=== PATIENT | female | born 1930 | race Caucasian/White ===

== ENCOUNTER 2017-03-16 08:00 | Day surgery (SDC) | payer OTHER ==
[~2017-03-16 08:00] MED LIST: ACEBUTCAFT PO; ALBU3IS INH; ALBU90OI INH; ALBU90OI6 INH; ALEN35; ALEN70 PO; ALLEGRA ALLERGY60 MG PO; AMITIZA PO; ANORO ELLIPTA1 EACH INH; ATEN100 PO; AZIT100SU PO; AZIT250 PO; Amitiza24 MCG; Amitiza24 MCG PO; BENAML20/5; BREO ELLIPTA 21 EACH IH; BUDE6HFA INH; BUME2 PO; Bactrim 400-801 EACH PO; CARV6.25 PO; CEPH250SUA PO; CEPH500 PO; CIPR500 PO; CLOP75; CYAN1000 PO; Carvedilol12.5 MG PO; Coreg12.5 MG PO; DIGO.125 PO; DIPH50 PO; DOCU100 PO; DONE10 PO; FEBU40TA PO; FURO20 PO; FURO40 PO; FURO80 PO; HYDACE25S PR; HYDACE5 PO; HYDACE7.5; HYDR1TAB94 PO; HYDR25SUP PR; Halcion0.25 MG PO; Hydrocodone-Ap1 EA23 PO; INDO25 PO; Ipratr-Albuterol3 ML INH; Isosorbide Mono30 MG PO; LACT10SY PO; LANOXIN125 MCG PO; LAVAP17G PO; LEVFLO500 PO; LEVO750; LORA.5 PO; LORA1 PO; Lasix80 MG PO; METANX; METANX PO; METO2.5 PO; METR500; METR500 PO; MOMENI; NYST100TC TOP; OXYACE7.5T PO; POTA10T PO; POTA8 PO; POTCHL20ER PO; PRED10 PO; PRED20 PO; PROACE100; PROACE100 PO; PROCTOSOL-HC30 GM PR; RANI150 PO; ROFL500T; ROFL500T PO; SPIR25 PO; SULTRIDS PO; Silvadene20 GM TOP; TIOT18 IH; TIOT18 INH; TRIHYD253A; VERA120 PO; VERA120ERB PO; Ventolin Soln3 ML INH; WARF3 PO; WARF4; WARF4 PO; WARF5; WARF5 PO; WARF7.5; Xanax0.5 MG PO; [UNRECOGNIZED DRUG - OTHER] PO
[2017-10-13] MEDS ORDERED: Nitrostat0.4 MG SL (11:26)
[2017-10-13] MEDS ORDERED: ENTRESTO 24 MG1 EACH PO (16:31)
[2017-10-13] MEDS ORDERED: B Complex #11 EACH PO (16:44)
[2017-10-13] MEDS ORDERED: B6 PO (16:47)
[2017-10-13] MEDS ORDERED: D3 PO (16:47)
[2017-10-13] MEDS ORDERED: Cefdinir300 MG PO (16:56)
[2017-10-16] MEDS ORDERED: Folic Acid-Vit1 EACH PO (13:35)
[2017-10-16] MEDS ORDERED: FURO40 PO (13:58)
== END 2017-03-16 10:51 | disposition home or self-care (01) ==
LOC: WOUND 08:00
PROC: 0HBKXZZ Excision of Right Lower Leg Skin, External Approach (ICD-10-PCS; principal; 2017-03-16)
DX: Z48.00 Encounter for change or removal of nonsurgical wound dressing (principal); I87.2 Venous insufficiency (chronic) (peripheral); I83.028 Varicose veins of left lower extremity with ulcer other part of lower leg; I83.018 Varicose veins of right lower extremity with ulcer other part of lower leg; J44.9 Chronic obstructive pulmonary disease, unspecified; Z99.81 Dependence on supplemental oxygen; I10 Essential (primary) hypertension
CPT/HCPCS: G0463

== ENCOUNTER 2017-03-20 10:02 | Day surgery (SDC) | payer OTHER ==
[2017-10-13] MEDS ORDERED: Nitrostat0.4 MG SL (11:26)
[2017-10-13] MEDS ORDERED: ENTRESTO 24 MG1 EACH PO (16:31)
[2017-10-13] MEDS ORDERED: B Complex #11 EACH PO (16:44)
[2017-10-13] MEDS ORDERED: B6 PO (16:47)
[2017-10-13] MEDS ORDERED: D3 PO (16:47)
[2017-10-13] MEDS ORDERED: Cefdinir300 MG PO (16:56)
[2017-10-16] MEDS ORDERED: Folic Acid-Vit1 EACH PO (13:35)
[2017-10-16] MEDS ORDERED: FURO40 PO (13:58)
== END 2017-03-20 10:37 | disposition home or self-care (01) ==
LOC: WOUND 10:02
PROC: 2W1RX6Z Compression of Left Lower Leg using Pressure Dressing (ICD-10-PCS; principal; 2017-03-20)
DX: Z48.00 Encounter for change or removal of nonsurgical wound dressing (principal); I87.2 Venous insufficiency (chronic) (peripheral); I83.028 Varicose veins of left lower extremity with ulcer other part of lower leg; I83.018 Varicose veins of right lower extremity with ulcer other part of lower leg; J44.9 Chronic obstructive pulmonary disease, unspecified; I10 Essential (primary) hypertension; Z99.81 Dependence on supplemental oxygen

== ENCOUNTER 2017-03-23 12:00 | Day surgery (SDC) | payer OTHER ==
[2017-10-13] MEDS ORDERED: Nitrostat0.4 MG SL (11:26)
[2017-10-13] MEDS ORDERED: ENTRESTO 24 MG1 EACH PO (16:31)
[2017-10-13] MEDS ORDERED: B Complex #11 EACH PO (16:44)
[2017-10-13] MEDS ORDERED: B6 PO (16:47)
[2017-10-13] MEDS ORDERED: D3 PO (16:47)
[2017-10-13] MEDS ORDERED: Cefdinir300 MG PO (16:56)
[2017-10-16] MEDS ORDERED: Folic Acid-Vit1 EACH PO (13:35)
[2017-10-16] MEDS ORDERED: FURO40 PO (13:58)
== END 2017-03-23 13:22 | disposition home or self-care (01) ==
LOC: WOUND 12:00
DX: Z48.00 Encounter for change or removal of nonsurgical wound dressing (principal); I87.2 Venous insufficiency (chronic) (peripheral); I83.028 Varicose veins of left lower extremity with ulcer other part of lower leg; I83.018 Varicose veins of right lower extremity with ulcer other part of lower leg; J44.9 Chronic obstructive pulmonary disease, unspecified; Z99.81 Dependence on supplemental oxygen; I11.0 Hypertensive heart disease with heart failure; I50.9 Heart failure, unspecified; I48.91 Unspecified atrial fibrillation

== ENCOUNTER 2017-03-24 16:46 | Inpatient (IN) | payer OTHER ==
[~2017-03-24] VITALS: Ht 157.5 cm; Wt 73.1 kg
[2017-03-24 17:16] LABS: BASOPHILS ABSOLUTE AUTO 0.02 K/mm3 (0.00-0.23); BASOPHILS PERCENT AUTO 0 % (0-2); EOSINOPHILS PERCENT AUTO 4 % (0-6); Hematocrit 36.4 % (33.0-51.0); Hemoglobin 10.8 g/dL (11.5-16.0); IMMATURE GRAN ABSOLUTE AUTO 0.01 K/mm3 (0.00-0.10); IMMATURE GRAN PERCENT AUTO 0 % (0-1); LYMPHOCYTES ABSOLUTE AUTO 0.88 K/mm3 (0.84-5.20); LYMPHOCYTES PERCENT AUTO 12 % (21-46); MONOCYTES ABSOLUTE AUTO 0.48 K/mm3 (0.16-1.47); MONOCYTES PERCENT AUTO 6 % (4-13); Mean Corpuscular HGB Conc 29.7 g/dL (31.5-36.5); Mean Corpuscular Volume 88 fL (80-100); Mean Platelet Volume 10.5 fL (9.1-12.4); NEUTROPHILS ABSOLUTE AUTO 5.99 K/mm3 (1.96-9.15); NEUTROPHILS PERCENT AUTO 78 % (41-73); Platelet Count 258 K/mm3 (150-400); RDW Coefficient Variation 18.4 % (11.7-14.2); RDW Standard Deviation 60.2 fL (35.1-46.3); Red Blood Cell Count 4.15 M/mm3 (3.80-5.20); White Blood Cell Count 7.68 K/mm3 (4.00-11.30)
[2017-03-24 17:17] LABS: Base Excess Venous 5.6 mmol/L; Bicarbonate Venous 27.9 mmol/L (24.0-30.0); PCO2 Venous 65.2 mmHg (38-42); PO2 Venous 59.6 mmHg (38-42)
[2017-03-24 17:28] LABS: International Normalized Ratio 1.44; Prothrombin Time Results 15.1 Sec (9.7-11.5)
[2017-03-24 17:39] LABS: Alanine Aminotransfer (ALT/SGP 19 U/L (12-78); Albumin, Blood 3.1 g/dL (3.4-5.0); Albumin/Globulin Ratio 0.7 (0.8-1.8); Alk Phos 115 U/L (50-136); Anion Gap 7 mmol/L (6-16); Aspartate Aminotrans (AST/SGOT 19 U/L (12-37); Bilirubin, Total 0.3 mg/dL (0.1-1.0); Blood Urea Nitrogen 33 mg/dL (8-24); Bun/Creatinine Ratio 29.2 (12.0-20.0); CO2, Blood 30 mmol/L (21-32); Calcium, Blood 9.1 mg/dL (8.5-10.1); Chloride, Blood 102 mmol/L (98-108); Creatinine, Blood 1.13 mg/dL (0.40-1.00); Globulin, Blood 4.7 g/dL (2.2-4.0); Glomerular Filtration Rate 49 (60-); Glucose, Blood 116 mg/dL (70-99); Potassium, Blood 5.2 mmol/L (3.5-5.5); Sodium, Blood 139 mmol/L (136-145); Total Protein, Blood 7.8 g/dL (6.4-8.2); Troponin I <0.015 ng/mL (0.000-0.040)
[2017-03-24 17:53] LABS: Source, Urine Clean Catch
[2017-03-24 17:57] LABS: Bilirubin, Urine Neg (Neg); Blood, Urine 1+ (Neg); Glucose Qualitative, Urine Neg (Neg); Ketones, Urine Neg (Neg); Leukocyte Esterase, Urine Neg (Neg); Nitrite, Urine Neg (Neg); Protein, Urine Neg (Neg); Specific Gravity, Urine 1.015 (1.003-1.022); Urobilinogen, Urine NORM (Normal)
[2017-03-24 18:00] LABS: Appearance, Urine Clear (Clear); Color, Urine Yellow (P-Yellow)
[2017-03-24 18:03] LABS: Bacteria Mod /hpf; Red Blood Cells, Urine 0-2 /hpf (0-2); Squamous Epithelial Cells Few /hpf (Few)
[2017-03-25 04:41] LABS: BASOPHILS ABSOLUTE AUTO 0.01 K/mm3 (0.00-0.23); BASOPHILS PERCENT AUTO 0 % (0-2); EOSINOPHILS ABSOLUTE AUTO 0.01 K/mm3 (0.00-0.68); EOSINOPHILS PERCENT AUTO 0 % (0-6); Hemoglobin 10.5 g/dL (11.5-16.0); IMMATURE GRAN ABSOLUTE AUTO 0.01 K/mm3 (0.00-0.10); IMMATURE GRAN PERCENT AUTO 0 % (0-1); LYMPHOCYTES ABSOLUTE AUTO 0.37 K/mm3 (0.84-5.20); LYMPHOCYTES PERCENT AUTO 4 % (21-46); MONOCYTES ABSOLUTE AUTO 0.14 K/mm3 (0.16-1.47); MONOCYTES PERCENT AUTO 2 % (4-13); Mean Corpuscular HGB 26.2 pg (26.0-34.0); Mean Corpuscular HGB Conc 29.2 g/dL (31.5-36.5); Mean Corpuscular Volume 90 fL (80-100); Mean Platelet Volume 11.3 fL (9.1-12.4); NEUTROPHILS ABSOLUTE AUTO 8.51 K/mm3 (1.96-9.15); NEUTROPHILS PERCENT AUTO 94 % (41-73); Platelet Count 242 K/mm3 (150-400); RDW Coefficient Variation 18.2 % (11.7-14.2); RDW Standard Deviation 60.4 fL (35.1-46.3); Red Blood Cell Count 4.01 M/mm3 (3.80-5.20); White Blood Cell Count 9.05 K/mm3 (4.00-11.30)
[2017-03-25 04:59] LABS: International Normalized Ratio 1.43
[2017-03-25 05:16] LABS: Albumin, Blood 2.9 g/dL (3.4-5.0); Albumin/Globulin Ratio 0.6 (0.8-1.8); Bilirubin, Total 0.6 mg/dL (0.1-1.0); Bun/Creatinine Ratio 29.3 (12.0-20.0); Calcium, Blood 8.8 mg/dL (8.5-10.1); Creatinine, Blood 0.99 mg/dL (0.40-1.00); Globulin, Blood 4.8 g/dL (2.2-4.0); Potassium, Blood 4.9 mmol/L (3.5-5.5); Total Protein, Blood 7.7 g/dL (6.4-8.2)
[2017-03-25 19:19] LABS: International Normalized Ratio 1.79; Prothrombin Time Results 18.9 Sec (9.7-11.5)
[2017-03-26 04:15] LABS: International Normalized Ratio 2.01; Prothrombin Time Results 21.4 Sec (9.7-11.5)
[2017-03-27 04:15] LABS: BASOPHILS PERCENT AUTO 0 % (0-2); EOSINOPHILS PERCENT AUTO 0 % (0-6); Hematocrit 34.6 % (33.0-51.0); Hemoglobin 10.4 g/dL (11.5-16.0); IMMATURE GRAN ABSOLUTE AUTO 0.02 K/mm3 (0.00-0.10); IMMATURE GRAN PERCENT AUTO 0 % (0-1); LYMPHOCYTES ABSOLUTE AUTO 0.39 K/mm3 (0.84-5.20); LYMPHOCYTES PERCENT AUTO 3 % (21-46); MONOCYTES ABSOLUTE AUTO 0.51 K/mm3 (0.16-1.47); MONOCYTES PERCENT AUTO 4 % (4-13); Mean Corpuscular HGB 26.7 pg (26.0-34.0); Mean Corpuscular HGB Conc 30.1 g/dL (31.5-36.5); Mean Corpuscular Volume 89 fL (80-100); Mean Platelet Volume 11.3 fL (9.1-12.4); NEUTROPHILS ABSOLUTE AUTO 11.39 K/mm3 (1.96-9.15); NEUTROPHILS PERCENT AUTO 93 % (41-73); Platelet Count 223 K/mm3 (150-400); RDW Coefficient Variation 18.5 % (11.7-14.2); RDW Standard Deviation 59.6 fL (35.1-46.3); Red Blood Cell Count 3.89 M/mm3 (3.80-5.20); White Blood Cell Count 12.31 K/mm3 (4.00-11.30)
[2017-03-27 04:26] LABS: International Normalized Ratio 2.73; Prothrombin Time Results 29.3 Sec (9.7-11.5)
[2017-03-27 04:40] LABS: Bun/Creatinine Ratio 40.6 (12.0-20.0); Calcium, Blood 8.9 mg/dL (8.5-10.1); Creatinine, Blood 1.01 mg/dL (0.40-1.00); Potassium, Blood 4.4 mmol/L (3.5-5.5)
[2017-03-28 05:13] LABS: International Normalized Ratio 3.96
[2017-03-28 05:18] LABS: Bun/Creatinine Ratio 43.6 (12.0-20.0); Calcium, Blood 9.1 mg/dL (8.5-10.1); Creatinine, Blood 1.1 mg/dL (0.40-1.00); Potassium, Blood 4.2 mmol/L (3.5-5.5)
[2017-03-29 05:50] LABS: International Normalized Ratio 2.72; Prothrombin Time Results 29.2 Sec (9.7-11.5)
[2017-03-29 06:13] LABS: Bun/Creatinine Ratio 47.5 (12.0-20.0); Calcium, Blood 9.1 mg/dL (8.5-10.1); Creatinine, Blood 1.01 mg/dL (0.40-1.00); Potassium, Blood 4.4 mmol/L (3.5-5.5)
[2017-03-30 06:03] LABS: International Normalized Ratio 2.21; Prothrombin Time Results 23.6 Sec (9.7-11.5)
[2017-03-30 06:14] LABS: Albumin, Blood 2.5 g/dL (3.4-5.0); Anion Gap 7 mmol/L (6-16); Blood Urea Nitrogen 55 mg/dL (8-24); Bun/Creatinine Ratio 55.8 (12.0-20.0); CO2, Blood 34 mmol/L (21-32); Chloride, Blood 95 mmol/L (98-108); Creatinine, Blood 0.99 mg/dL (0.40-1.00); Glomerular Filtration Rate 57 (60-); Glucose, Blood 115 mg/dL (70-99); Phosphorus, Blood 3.2 mg/dL (2.5-4.9); Potassium, Blood 4.2 mmol/L (3.5-5.5); Sodium, Blood 136 mmol/L (136-145)
[2017-03-31 05:01] LABS: International Normalized Ratio 2.62; Prothrombin Time Results 28.1 Sec (9.7-11.5)
[2017-03-31] MEDS ORDERED: PRED20 PO (16:10)
[2017-03-31] MEDS ORDERED: LEVFLO500 PO (16:11)
[2017-03-31] MEDS ORDERED: POTCHL20ER PO (16:13)
[2017-10-13] MEDS ORDERED: Nitrostat0.4 MG SL (11:26)
[2017-10-13] MEDS ORDERED: ENTRESTO 24 MG1 EACH PO (16:31)
[2017-10-13] MEDS ORDERED: B Complex #11 EACH PO (16:44)
[2017-10-13] MEDS ORDERED: B6 PO (16:47)
[2017-10-13] MEDS ORDERED: D3 PO (16:47)
[2017-10-13] MEDS ORDERED: Cefdinir300 MG PO (16:56)
[2017-10-16] MEDS ORDERED: Folic Acid-Vit1 EACH PO (13:35)
[2017-10-16] MEDS ORDERED: FURO40 PO (13:58)
== END 2017-03-31 16:28 | disposition home or self-care (01) | DRG 190 ==
LOC: ER 16:46 → PCU 19:28 → SURS 03-27 11:33
PROVIDERS: Emergency Medicine; Family Medicine
PROC: 5A09357 Assistance with Respiratory Ventilation, Less than 24 Consecutive Hours, Continuous Positive Airway Pressure (ICD-10-PCS; principal; 2017-03-24)
DX: J44.1 Chronic obstructive pulmonary disease with (acute) exacerbation (principal); J96.02 Acute respiratory failure with hypercapnia; E87.2 Acidosis; I50.42 Chronic combined systolic (congestive) and diastolic (congestive) heart failure; I87.331 Chronic venous hypertension (idiopathic) with ulcer and inflammation of right lower extremity; L97.919 Non-pressure chronic ulcer of unspecified part of right lower leg with unspecified severity; I11.0 Hypertensive heart disease with heart failure; E11.9 Type 2 diabetes mellitus without complications; I25.10 Atherosclerotic heart disease of native coronary artery without angina pectoris; I48.2 Chronic atrial fibrillation; I73.9 Peripheral vascular disease, unspecified; I87.2 Venous insufficiency (chronic) (peripheral); I89.0 Lymphedema, not elsewhere classified; Z79.01 Long term (current) use of anticoagulants; Z85.528 Personal history of other malignant neoplasm of kidney; Z86.73 Personal history of transient ischemic attack (TIA), and cerebral infarction without residual deficits; Z99.2 Dependence on renal dialysis; Z87.891 Personal history of nicotine dependence
CPT/HCPCS: 36415; 51702; 71046; 80048; 80053; 80069; 81001; 82803; 82947; 83880; 84484; 85025; 85610; 87086; 93005; 93010; 94640; 94760; 94762; 96374; 96375; 99285; J0696; J1940; J1956; J2930; J7030

== ENCOUNTER 2017-04-06 12:30 | Day surgery (SDC) | payer OTHER ==
[2017-10-13] MEDS ORDERED: Nitrostat0.4 MG SL (11:26)
[2017-10-13] MEDS ORDERED: ENTRESTO 24 MG1 EACH PO (16:31)
[2017-10-13] MEDS ORDERED: B Complex #11 EACH PO (16:44)
[2017-10-13] MEDS ORDERED: D3 PO (16:47)
[2017-10-13] MEDS ORDERED: B6 PO (16:47)
[2017-10-13] MEDS ORDERED: Cefdinir300 MG PO (16:56)
[2017-10-16] MEDS ORDERED: Folic Acid-Vit1 EACH PO (13:35)
[2017-10-16] MEDS ORDERED: FURO40 PO (13:58)
== END 2017-04-06 13:15 | disposition home or self-care (01) ==
LOC: WOUND 12:30
PROC: 2W1RX6Z Compression of Left Lower Leg using Pressure Dressing (ICD-10-PCS; principal; 2017-04-06)
DX: Z48.00 Encounter for change or removal of nonsurgical wound dressing (principal); I87.2 Venous insufficiency (chronic) (peripheral); I83.028 Varicose veins of left lower extremity with ulcer other part of lower leg; I83.018 Varicose veins of right lower extremity with ulcer other part of lower leg; J44.9 Chronic obstructive pulmonary disease, unspecified; I10 Essential (primary) hypertension; Z99.81 Dependence on supplemental oxygen

== ENCOUNTER 2017-04-12 10:00 | Day surgery (SDC) | payer OTHER ==
[2017-10-13] MEDS ORDERED: Nitrostat0.4 MG SL (11:26)
[2017-10-13] MEDS ORDERED: ENTRESTO 24 MG1 EACH PO (16:31)
[2017-10-13] MEDS ORDERED: B Complex #11 EACH PO (16:44)
[2017-10-13] MEDS ORDERED: B6 PO (16:47)
[2017-10-13] MEDS ORDERED: D3 PO (16:47)
[2017-10-13] MEDS ORDERED: Cefdinir300 MG PO (16:56)
[2017-10-16] MEDS ORDERED: Folic Acid-Vit1 EACH PO (13:35)
[2017-10-16] MEDS ORDERED: FURO40 PO (13:58)
== END 2017-04-12 11:43 | disposition home or self-care (01) ==
LOC: WOUND 10:00
DX: Z48.00 Encounter for change or removal of nonsurgical wound dressing (principal); I87.2 Venous insufficiency (chronic) (peripheral); I83.028 Varicose veins of left lower extremity with ulcer other part of lower leg; I83.018 Varicose veins of right lower extremity with ulcer other part of lower leg; J44.9 Chronic obstructive pulmonary disease, unspecified; Z99.81 Dependence on supplemental oxygen; I11.0 Hypertensive heart disease with heart failure; I50.9 Heart failure, unspecified; I48.91 Unspecified atrial fibrillation
CPT/HCPCS: G0463

== ENCOUNTER 2017-04-20 00:46 | Day surgery (SDC) | payer OTHER ==
[2017-10-13] MEDS ORDERED: Nitrostat0.4 MG SL (11:26)
[2017-10-13] MEDS ORDERED: ENTRESTO 24 MG1 EACH PO (16:31)
[2017-10-13] MEDS ORDERED: B Complex #11 EACH PO (16:44)
[2017-10-13] MEDS ORDERED: B6 PO (16:47)
[2017-10-13] MEDS ORDERED: D3 PO (16:47)
[2017-10-13] MEDS ORDERED: Cefdinir300 MG PO (16:56)
[2017-10-16] MEDS ORDERED: Folic Acid-Vit1 EACH PO (13:35)
[2017-10-16] MEDS ORDERED: FURO40 PO (13:58)
== END 2017-04-20 23:19 | disposition home or self-care (01) ==
LOC: WOUND 00:46
DX: Z48.00 Encounter for change or removal of nonsurgical wound dressing (principal); I87.2 Venous insufficiency (chronic) (peripheral); I83.028 Varicose veins of left lower extremity with ulcer other part of lower leg; I83.018 Varicose veins of right lower extremity with ulcer other part of lower leg; J44.9 Chronic obstructive pulmonary disease, unspecified; Z99.81 Dependence on supplemental oxygen; L97.819 Non-pressure chronic ulcer of other part of right lower leg with unspecified severity; L97.829 Non-pressure chronic ulcer of other part of left lower leg with unspecified severity; I11.0 Hypertensive heart disease with heart failure; I50.9 Heart failure, unspecified; I48.91 Unspecified atrial fibrillation
CPT/HCPCS: 93970; G0463

== ENCOUNTER 2017-04-27 09:00 | Day surgery (SDC) | payer OTHER ==
[2017-10-13] MEDS ORDERED: Nitrostat0.4 MG SL (11:26)
[2017-10-13] MEDS ORDERED: ENTRESTO 24 MG1 EACH PO (16:31)
[2017-10-13] MEDS ORDERED: B Complex #11 EACH PO (16:44)
[2017-10-13] MEDS ORDERED: D3 PO (16:47)
[2017-10-13] MEDS ORDERED: B6 PO (16:47)
[2017-10-13] MEDS ORDERED: Cefdinir300 MG PO (16:56)
[2017-10-16] MEDS ORDERED: Folic Acid-Vit1 EACH PO (13:35)
[2017-10-16] MEDS ORDERED: FURO40 PO (13:58)
== END 2017-04-27 10:48 | disposition home or self-care (01) ==
LOC: WOUND 09:00
DX: Z48.00 Encounter for change or removal of nonsurgical wound dressing (principal); I87.2 Venous insufficiency (chronic) (peripheral); I83.028 Varicose veins of left lower extremity with ulcer other part of lower leg; I83.018 Varicose veins of right lower extremity with ulcer other part of lower leg; J44.9 Chronic obstructive pulmonary disease, unspecified; Z99.81 Dependence on supplemental oxygen; I10 Essential (primary) hypertension
CPT/HCPCS: G0463

== ENCOUNTER 2017-05-04 00:33 | Day surgery (SDC) | payer OTHER ==
[2017-10-13] MEDS ORDERED: Nitrostat0.4 MG SL (11:26)
[2017-10-13] MEDS ORDERED: ENTRESTO 24 MG1 EACH PO (16:31)
[2017-10-13] MEDS ORDERED: B Complex #11 EACH PO (16:44)
[2017-10-13] MEDS ORDERED: D3 PO (16:47)
[2017-10-13] MEDS ORDERED: B6 PO (16:47)
[2017-10-13] MEDS ORDERED: Cefdinir300 MG PO (16:56)
[2017-10-16] MEDS ORDERED: Folic Acid-Vit1 EACH PO (13:35)
[2017-10-16] MEDS ORDERED: FURO40 PO (13:58)
== END 2017-05-04 23:58 | disposition home or self-care (01) ==
LOC: WOUND 00:33
PROC: 2W1RX6Z Compression of Left Lower Leg using Pressure Dressing (ICD-10-PCS; principal; 2017-05-04)
PROC: 2W1QX6Z Compression of Right Lower Leg using Pressure Dressing (ICD-10-PCS; principal; 2017-05-04)
DX: Z48.00 Encounter for change or removal of nonsurgical wound dressing (principal); I87.2 Venous insufficiency (chronic) (peripheral); I83.028 Varicose veins of left lower extremity with ulcer other part of lower leg; I83.018 Varicose veins of right lower extremity with ulcer other part of lower leg; J44.9 Chronic obstructive pulmonary disease, unspecified; Z98.1 Arthrodesis status; I10 Essential (primary) hypertension; Z86.73 Personal history of transient ischemic attack (TIA), and cerebral infarction without residual deficits; I11.0 Hypertensive heart disease with heart failure; I50.9 Heart failure, unspecified
CPT/HCPCS: G0463

== ENCOUNTER 2017-05-07 00:03 | Day surgery (SDC) | payer OTHER ==
[2017-10-13] MEDS ORDERED: Nitrostat0.4 MG SL (11:26)
[2017-10-13] MEDS ORDERED: ENTRESTO 24 MG1 EACH PO (16:31)
[2017-10-13] MEDS ORDERED: B Complex #11 EACH PO (16:44)
[2017-10-13] MEDS ORDERED: B6 PO (16:47)
[2017-10-13] MEDS ORDERED: D3 PO (16:47)
[2017-10-13] MEDS ORDERED: Cefdinir300 MG PO (16:56)
[2017-10-16] MEDS ORDERED: Folic Acid-Vit1 EACH PO (13:35)
[2017-10-16] MEDS ORDERED: FURO40 PO (13:58)
== END 2017-05-07 11:15 | disposition home or self-care (01) ==
LOC: WOUND 00:03
DX: Z48.00 Encounter for change or removal of nonsurgical wound dressing (principal); I87.2 Venous insufficiency (chronic) (peripheral); I83.028 Varicose veins of left lower extremity with ulcer other part of lower leg; I83.018 Varicose veins of right lower extremity with ulcer other part of lower leg; J44.9 Chronic obstructive pulmonary disease, unspecified; Z99.81 Dependence on supplemental oxygen; I10 Essential (primary) hypertension
CPT/HCPCS: G0463

== ENCOUNTER 2017-05-11 00:45 | Day surgery (SDC) | payer OTHER ==
[2017-10-13] MEDS ORDERED: Nitrostat0.4 MG SL (11:26)
[2017-10-13] MEDS ORDERED: ENTRESTO 24 MG1 EACH PO (16:31)
[2017-10-13] MEDS ORDERED: B Complex #11 EACH PO (16:44)
[2017-10-13] MEDS ORDERED: D3 PO (16:47)
[2017-10-13] MEDS ORDERED: B6 PO (16:47)
[2017-10-13] MEDS ORDERED: Cefdinir300 MG PO (16:56)
[2017-10-16] MEDS ORDERED: Folic Acid-Vit1 EACH PO (13:35)
[2017-10-16] MEDS ORDERED: FURO40 PO (13:58)
== END 2017-05-11 23:19 | disposition home or self-care (01) ==
LOC: WOUND 00:45
DX: Z48.00 Encounter for change or removal of nonsurgical wound dressing (principal); I87.2 Venous insufficiency (chronic) (peripheral); I83.028 Varicose veins of left lower extremity with ulcer other part of lower leg; I83.018 Varicose veins of right lower extremity with ulcer other part of lower leg; J44.9 Chronic obstructive pulmonary disease, unspecified; Z99.81 Dependence on supplemental oxygen; I48.91 Unspecified atrial fibrillation; I11.0 Hypertensive heart disease with heart failure; I50.9 Heart failure, unspecified

== ENCOUNTER 2017-05-18 00:07 | Day surgery (SDC) | payer OTHER ==
[2017-10-13] MEDS ORDERED: Nitrostat0.4 MG SL (11:26)
[2017-10-13] MEDS ORDERED: ENTRESTO 24 MG1 EACH PO (16:31)
[2017-10-13] MEDS ORDERED: B Complex #11 EACH PO (16:44)
[2017-10-13] MEDS ORDERED: B6 PO (16:47)
[2017-10-13] MEDS ORDERED: D3 PO (16:47)
[2017-10-13] MEDS ORDERED: Cefdinir300 MG PO (16:56)
[2017-10-16] MEDS ORDERED: Folic Acid-Vit1 EACH PO (13:35)
[2017-10-16] MEDS ORDERED: FURO40 PO (13:58)
== END 2017-05-18 22:50 | disposition home or self-care (01) ==
LOC: WOUND 00:07
PROC: 2W1LX6Z Compression of Right Lower Extremity using Pressure Dressing (ICD-10-PCS; principal; 2017-05-18)
PROC: 2W1RX6Z Compression of Left Lower Leg using Pressure Dressing (ICD-10-PCS; principal; 2017-05-18)
DX: I83.028 Varicose veins of left lower extremity with ulcer other part of lower leg (principal); I83.018 Varicose veins of right lower extremity with ulcer other part of lower leg; J44.9 Chronic obstructive pulmonary disease, unspecified; I10 Essential (primary) hypertension; I87.2 Venous insufficiency (chronic) (peripheral); L97.919 Non-pressure chronic ulcer of unspecified part of right lower leg with unspecified severity
CPT/HCPCS: 87070; 87077; 87147; 87186; 87205; G0463

== ENCOUNTER 2017-05-23 09:19 | Day surgery (SDC) | payer OTHER ==
[2017-10-13] MEDS ORDERED: Nitrostat0.4 MG SL (11:26)
[2017-10-13] MEDS ORDERED: ENTRESTO 24 MG1 EACH PO (16:31)
[2017-10-13] MEDS ORDERED: B Complex #11 EACH PO (16:44)
[2017-10-13] MEDS ORDERED: D3 PO (16:47)
[2017-10-13] MEDS ORDERED: B6 PO (16:47)
[2017-10-13] MEDS ORDERED: Cefdinir300 MG PO (16:56)
[2017-10-16] MEDS ORDERED: Folic Acid-Vit1 EACH PO (13:35)
[2017-10-16] MEDS ORDERED: FURO40 PO (13:58)
== END 2017-05-23 22:45 | disposition home or self-care (01) ==
LOC: WOUND 09:19
DX: Z48.00 Encounter for change or removal of nonsurgical wound dressing (principal); I87.2 Venous insufficiency (chronic) (peripheral); I83.028 Varicose veins of left lower extremity with ulcer other part of lower leg; I83.018 Varicose veins of right lower extremity with ulcer other part of lower leg; J44.9 Chronic obstructive pulmonary disease, unspecified; Z99.81 Dependence on supplemental oxygen; I11.0 Hypertensive heart disease with heart failure; I50.9 Heart failure, unspecified
CPT/HCPCS: G0463

== ENCOUNTER 2017-05-25 00:45 | Day surgery (SDC) | payer OTHER ==
[2017-10-13] MEDS ORDERED: Nitrostat0.4 MG SL (11:26)
[2017-10-13] MEDS ORDERED: ENTRESTO 24 MG1 EACH PO (16:31)
[2017-10-13] MEDS ORDERED: B Complex #11 EACH PO (16:44)
[2017-10-13] MEDS ORDERED: D3 PO (16:47)
[2017-10-13] MEDS ORDERED: B6 PO (16:47)
[2017-10-13] MEDS ORDERED: Cefdinir300 MG PO (16:56)
[2017-10-16] MEDS ORDERED: Folic Acid-Vit1 EACH PO (13:35)
[2017-10-16] MEDS ORDERED: FURO40 PO (13:58)
== END 2017-05-25 22:58 | disposition home or self-care (01) ==
LOC: WOUND 00:45
PROC: 0HBLXZZ Excision of Left Lower Leg Skin, External Approach (ICD-10-PCS; principal; 2017-05-25)
DX: I87.2 Venous insufficiency (chronic) (peripheral) (principal); I83.028 Varicose veins of left lower extremity with ulcer other part of lower leg; I83.018 Varicose veins of right lower extremity with ulcer other part of lower leg; J44.9 Chronic obstructive pulmonary disease, unspecified; Z99.81 Dependence on supplemental oxygen; I10 Essential (primary) hypertension; I50.9 Heart failure, unspecified

== ENCOUNTER 2017-06-04 08:58 | Day surgery (SDC) | payer OTHER ==
[2017-10-13] MEDS ORDERED: Nitrostat0.4 MG SL (11:26)
[2017-10-13] MEDS ORDERED: ENTRESTO 24 MG1 EACH PO (16:31)
[2017-10-13] MEDS ORDERED: B Complex #11 EACH PO (16:44)
[2017-10-13] MEDS ORDERED: B6 PO (16:47)
[2017-10-13] MEDS ORDERED: D3 PO (16:47)
[2017-10-13] MEDS ORDERED: Cefdinir300 MG PO (16:56)
[2017-10-16] MEDS ORDERED: Folic Acid-Vit1 EACH PO (13:35)
[2017-10-16] MEDS ORDERED: FURO40 PO (13:58)
== END 2017-06-04 16:48 | disposition home or self-care (01) ==
LOC: WOUND 08:58
PROC: 2W1RX6Z Compression of Left Lower Leg using Pressure Dressing (ICD-10-PCS; principal; 2017-06-04)
PROC: 2W1QX6Z Compression of Right Lower Leg using Pressure Dressing (ICD-10-PCS; principal; 2017-06-04)
DX: I87.2 Venous insufficiency (chronic) (peripheral) (principal); I83.028 Varicose veins of left lower extremity with ulcer other part of lower leg; I83.018 Varicose veins of right lower extremity with ulcer other part of lower leg; J44.9 Chronic obstructive pulmonary disease, unspecified; Z99.81 Dependence on supplemental oxygen; I11.0 Hypertensive heart disease with heart failure; I48.91 Unspecified atrial fibrillation; I50.9 Heart failure, unspecified
CPT/HCPCS: G0463

== ENCOUNTER 2017-06-05 00:36 | Day surgery (SDC) | payer OTHER ==
[2017-10-13] MEDS ORDERED: Nitrostat0.4 MG SL (11:26)
[2017-10-13] MEDS ORDERED: ENTRESTO 24 MG1 EACH PO (16:31)
[2017-10-13] MEDS ORDERED: B Complex #11 EACH PO (16:44)
[2017-10-13] MEDS ORDERED: D3 PO (16:47)
[2017-10-13] MEDS ORDERED: B6 PO (16:47)
[2017-10-13] MEDS ORDERED: Cefdinir300 MG PO (16:56)
[2017-10-16] MEDS ORDERED: Folic Acid-Vit1 EACH PO (13:35)
[2017-10-16] MEDS ORDERED: FURO40 PO (13:58)
== END 2017-06-05 11:16 | disposition home or self-care (01) ==
LOC: WOUND 00:36
PROC: 2W1QX6Z Compression of Right Lower Leg using Pressure Dressing (ICD-10-PCS; principal; 2017-06-05)
PROC: 2W1RX6Z Compression of Left Lower Leg using Pressure Dressing (ICD-10-PCS; principal; 2017-06-05)
DX: Z48.00 Encounter for change or removal of nonsurgical wound dressing (principal); I87.2 Venous insufficiency (chronic) (peripheral); I83.028 Varicose veins of left lower extremity with ulcer other part of lower leg; I83.018 Varicose veins of right lower extremity with ulcer other part of lower leg; J44.9 Chronic obstructive pulmonary disease, unspecified; C64.9 Malignant neoplasm of unspecified kidney, except renal pelvis; I48.91 Unspecified atrial fibrillation; I11.0 Hypertensive heart disease with heart failure; I50.9 Heart failure, unspecified; Z99.81 Dependence on supplemental oxygen; Z91.81 History of falling; Z86.73 Personal history of transient ischemic attack (TIA), and cerebral infarction without residual deficits

== ENCOUNTER 2017-06-11 08:43 | Day surgery (SDC) | payer OTHER ==
[2017-10-13] MEDS ORDERED: Nitrostat0.4 MG SL (11:26)
[2017-10-13] MEDS ORDERED: ENTRESTO 24 MG1 EACH PO (16:31)
[2017-10-13] MEDS ORDERED: B Complex #11 EACH PO (16:44)
[2017-10-13] MEDS ORDERED: B6 PO (16:47)
[2017-10-13] MEDS ORDERED: D3 PO (16:47)
[2017-10-13] MEDS ORDERED: Cefdinir300 MG PO (16:56)
[2017-10-16] MEDS ORDERED: Folic Acid-Vit1 EACH PO (13:35)
[2017-10-16] MEDS ORDERED: FURO40 PO (13:58)
== END 2017-06-11 10:35 | disposition home or self-care (01) ==
LOC: WOUND 08:43
PROC: 2W1QX6Z Compression of Right Lower Leg using Pressure Dressing (ICD-10-PCS; principal; 2017-06-11)
DX: Z48.00 Encounter for change or removal of nonsurgical wound dressing (principal); I87.2 Venous insufficiency (chronic) (peripheral); I83.028 Varicose veins of left lower extremity with ulcer other part of lower leg; I83.018 Varicose veins of right lower extremity with ulcer other part of lower leg; I48.91 Unspecified atrial fibrillation; I11.0 Hypertensive heart disease with heart failure; I50.9 Heart failure, unspecified; Z86.73 Personal history of transient ischemic attack (TIA), and cerebral infarction without residual deficits; J44.9 Chronic obstructive pulmonary disease, unspecified; Z86.14 Personal history of Methicillin resistant Staphylococcus aureus infection; Z99.81 Dependence on supplemental oxygen; Z91.81 History of falling

== ENCOUNTER 2017-06-19 00:21 | Day surgery (SDC) | payer OTHER ==
[2017-06-19 13:39] LABS: BASOPHILS ABSOLUTE AUTO 0.03 K/mm3 (0.00-0.23); BASOPHILS PERCENT AUTO 0 % (0-2); EOSINOPHILS PERCENT AUTO 3 % (0-6); Hematocrit 34.6 % (33.0-51.0); Hemoglobin 10.3 g/dL (11.5-16.0); IMMATURE GRAN ABSOLUTE AUTO 0.02 K/mm3 (0.00-0.10); IMMATURE GRAN PERCENT AUTO 0 % (0-1); LYMPHOCYTES ABSOLUTE AUTO 0.77 K/mm3 (0.84-5.20); LYMPHOCYTES PERCENT AUTO 10 % (21-46); MONOCYTES ABSOLUTE AUTO 0.56 K/mm3 (0.16-1.47); MONOCYTES PERCENT AUTO 8 % (4-13); Mean Corpuscular HGB 26.7 pg (26.0-34.0); Mean Corpuscular HGB Conc 29.8 g/dL (31.5-36.5); Mean Corpuscular Volume 90 fL (80-100); Mean Platelet Volume 11.9 fL (9.1-12.4); NEUTROPHILS ABSOLUTE AUTO 5.79 K/mm3 (1.96-9.15); NEUTROPHILS PERCENT AUTO 79 % (41-73); Platelet Count 259 K/mm3 (150-400); RDW Coefficient Variation 16.6 % (11.7-14.2); RDW Standard Deviation 54.3 fL (35.1-46.3); Red Blood Cell Count 3.86 M/mm3 (3.80-5.20); White Blood Cell Count 7.37 K/mm3 (4.00-11.30)
[2017-06-19 13:53] LABS: Albumin/Globulin Ratio 0.6 (0.8-1.8); Bilirubin, Total 0.3 mg/dL (0.1-1.0); Bun/Creatinine Ratio 41.1 (12.0-20.0); Calcium, Blood 8.9 mg/dL (8.5-10.1); Creatinine, Blood 1.12 mg/dL (0.40-1.00); Globulin, Blood 4.8 g/dL (2.2-4.0); Potassium, Blood 5.2 mmol/L (3.5-5.5); Total Protein, Blood 7.8 g/dL (6.4-8.2)
== END 2017-06-19 22:45 | disposition home or self-care (01) ==
LOC: WOUND 00:21 → LAB 00:21 → WOUND 08:39
PROVIDERS: Family Medicine
PROC: 2W1QX6Z Compression of Right Lower Leg using Pressure Dressing (ICD-10-PCS; principal; 2017-06-19)
PROC: 2W1RX6Z Compression of Left Lower Leg using Pressure Dressing (ICD-10-PCS; principal; 2017-06-19)
DX: I87.2 Venous insufficiency (chronic) (peripheral) (principal); I83.028 Varicose veins of left lower extremity with ulcer other part of lower leg; I83.018 Varicose veins of right lower extremity with ulcer other part of lower leg; J44.9 Chronic obstructive pulmonary disease, unspecified; Z99.81 Dependence on supplemental oxygen; I10 Essential (primary) hypertension; I11.0 Hypertensive heart disease with heart failure; I50.9 Heart failure, unspecified; Z86.73 Personal history of transient ischemic attack (TIA), and cerebral infarction without residual deficits
CPT/HCPCS: 36415; 71046; 80053; 83880; 85025; G0463

== ENCOUNTER 2017-06-26 14:51 | Day surgery (SDC) | payer OTHER | END 2017-06-26 22:46 | disposition home or self-care (01) | LOC: US 14:51 | PROC: 0W9G3ZZ Drainage of Peritoneal Cavity, Percutaneous Approach (ICD-10-PCS; principal; 2017-06-26) | DX: J90 Pleural effusion, not elsewhere classified (principal) | CPT/HCPCS: 32555; 71045; 87070; 87205; 88108; 88305; 88342 ==

== ENCOUNTER 2017-07-03 09:59 | Day surgery (SDC) | payer OTHER | END 2017-07-03 22:52 | disposition home or self-care (01) | LOC: WOUND 09:59 | PROC: 2W1QX6Z Compression of Right Lower Leg using Pressure Dressing (ICD-10-PCS; principal; 2017-07-03) | DX: I87.2 Venous insufficiency (chronic) (peripheral) (principal); I83.028 Varicose veins of left lower extremity with ulcer other part of lower leg; I83.018 Varicose veins of right lower extremity with ulcer other part of lower leg; I10 Essential (primary) hypertension; Z99.81 Dependence on supplemental oxygen; J44.9 Chronic obstructive pulmonary disease, unspecified; L97.819 Non-pressure chronic ulcer of other part of right lower leg with unspecified severity | CPT/HCPCS: G0463 ==

== ENCOUNTER 2017-07-09 08:59 | Day surgery (SDC) | payer OTHER | END 2017-07-09 23:06 | disposition home or self-care (01) | LOC: WOUND 08:59 | PROC: 2W1RX6Z Compression of Left Lower Leg using Pressure Dressing (ICD-10-PCS; principal; 2017-07-09) | PROC: 2W1QX6Z Compression of Right Lower Leg using Pressure Dressing (ICD-10-PCS; principal; 2017-07-09) | DX: I87.2 Venous insufficiency (chronic) (peripheral) (principal); I83.028 Varicose veins of left lower extremity with ulcer other part of lower leg; I83.018 Varicose veins of right lower extremity with ulcer other part of lower leg; J44.9 Chronic obstructive pulmonary disease, unspecified; Z99.81 Dependence on supplemental oxygen; I10 Essential (primary) hypertension; L97.811 Non-pressure chronic ulcer of other part of right lower leg limited to breakdown of skin; L97.821 Non-pressure chronic ulcer of other part of left lower leg limited to breakdown of skin | CPT/HCPCS: G0463 ==

== ENCOUNTER 2017-07-16 09:15 | Day surgery (SDC) | payer OTHER | END 2017-07-16 12:08 | disposition home or self-care (01) | LOC: WOUND 09:15 | DX: Z48.00 Encounter for change or removal of nonsurgical wound dressing (principal); I87.2 Venous insufficiency (chronic) (peripheral); I83.028 Varicose veins of left lower extremity with ulcer other part of lower leg; J44.9 Chronic obstructive pulmonary disease, unspecified; Z99.81 Dependence on supplemental oxygen; I10 Essential (primary) hypertension | CPT/HCPCS: G0463 ==

== ENCOUNTER 2017-07-23 00:30 | Day surgery (SDC) | payer OTHER ==
[2017-07-23 18:59] LABS: Bun/Creatinine Ratio 47.5 (12.0-20.0); Calcium, Blood 9.6 mg/dL (8.5-10.1); Creatinine, Blood 1.83 mg/dL (0.40-1.00); Potassium, Blood 5.5 mmol/L (3.5-5.5)
== END 2017-07-23 22:42 | disposition home or self-care (01) ==
LOC: WOUND 00:30
PROVIDERS: Family Medicine
DX: Z48.00 Encounter for change or removal of nonsurgical wound dressing (principal); I87.2 Venous insufficiency (chronic) (peripheral); I83.028 Varicose veins of left lower extremity with ulcer other part of lower leg; I83.018 Varicose veins of right lower extremity with ulcer other part of lower leg; J44.9 Chronic obstructive pulmonary disease, unspecified; Z99.81 Dependence on supplemental oxygen; I10 Essential (primary) hypertension
CPT/HCPCS: 36415; 80048; G0463

== ENCOUNTER 2017-07-30 09:00 | Day surgery (SDC) | payer OTHER | END 2017-07-30 22:46 | disposition home or self-care (01) | LOC: WOUND 09:00 | DX: Z48.00 Encounter for change or removal of nonsurgical wound dressing (principal); I87.2 Venous insufficiency (chronic) (peripheral); I83.028 Varicose veins of left lower extremity with ulcer other part of lower leg; I83.018 Varicose veins of right lower extremity with ulcer other part of lower leg; J44.9 Chronic obstructive pulmonary disease, unspecified; I10 Essential (primary) hypertension; Z99.81 Dependence on supplemental oxygen | CPT/HCPCS: G0463 ==

== ENCOUNTER 2017-08-06 09:15 | Day surgery (SDC) | payer OTHER | END 2017-08-06 11:17 | disposition home or self-care (01) | LOC: WOUND 09:15 | DX: Z48.00 Encounter for change or removal of nonsurgical wound dressing (principal); I87.2 Venous insufficiency (chronic) (peripheral); I83.028 Varicose veins of left lower extremity with ulcer other part of lower leg; I83.018 Varicose veins of right lower extremity with ulcer other part of lower leg; J44.9 Chronic obstructive pulmonary disease, unspecified; Z98.1 Arthrodesis status; I10 Essential (primary) hypertension | CPT/HCPCS: G0463 ==

== ENCOUNTER 2017-08-20 09:15 | Day surgery (SDC) | payer OTHER | END 2017-08-20 10:41 | disposition home or self-care (01) | LOC: WOUND 09:15 | DX: Z48.00 Encounter for change or removal of nonsurgical wound dressing (principal); I87.2 Venous insufficiency (chronic) (peripheral); I83.028 Varicose veins of left lower extremity with ulcer other part of lower leg; I83.018 Varicose veins of right lower extremity with ulcer other part of lower leg; J44.9 Chronic obstructive pulmonary disease, unspecified; Z99.81 Dependence on supplemental oxygen; I10 Essential (primary) hypertension | CPT/HCPCS: G0463 ==

== ENCOUNTER 2017-08-27 09:07 | Day surgery (SDC) | payer OTHER | END 2017-08-27 10:36 | disposition home or self-care (01) | LOC: WOUND 09:07 | DX: Z48.00 Encounter for change or removal of nonsurgical wound dressing (principal); I87.2 Venous insufficiency (chronic) (peripheral); I83.028 Varicose veins of left lower extremity with ulcer other part of lower leg; I83.018 Varicose veins of right lower extremity with ulcer other part of lower leg; J44.9 Chronic obstructive pulmonary disease, unspecified; Z99.81 Dependence on supplemental oxygen; I10 Essential (primary) hypertension | CPT/HCPCS: G0463 ==

== ENCOUNTER 2017-09-03 09:04 | Day surgery (SDC) | payer OTHER | END 2017-09-03 23:15 | disposition home or self-care (01) | LOC: WOUND 09:04 | DX: Z48.00 Encounter for change or removal of nonsurgical wound dressing (principal); I87.2 Venous insufficiency (chronic) (peripheral); I83.028 Varicose veins of left lower extremity with ulcer other part of lower leg; I83.018 Varicose veins of right lower extremity with ulcer other part of lower leg; J44.9 Chronic obstructive pulmonary disease, unspecified; I10 Essential (primary) hypertension | CPT/HCPCS: G0463 ==

== ENCOUNTER 2017-09-10 09:15 | Day surgery (SDC) | payer OTHER | END 2017-09-10 11:22 | disposition home or self-care (01) | LOC: WOUND 09:15 | DX: Z48.00 Encounter for change or removal of nonsurgical wound dressing (principal); I87.2 Venous insufficiency (chronic) (peripheral); I83.028 Varicose veins of left lower extremity with ulcer other part of lower leg; I83.018 Varicose veins of right lower extremity with ulcer other part of lower leg; J44.9 Chronic obstructive pulmonary disease, unspecified; I10 Essential (primary) hypertension | CPT/HCPCS: G0463 ==

== ENCOUNTER 2017-09-17 09:30 | Day surgery (SDC) | payer OTHER | END 2017-09-17 10:14 | disposition home or self-care (01) | LOC: WOUND 09:30 | DX: Z48.00 Encounter for change or removal of nonsurgical wound dressing (principal); I87.2 Venous insufficiency (chronic) (peripheral); I83.028 Varicose veins of left lower extremity with ulcer other part of lower leg; I83.018 Varicose veins of right lower extremity with ulcer other part of lower leg; J44.9 Chronic obstructive pulmonary disease, unspecified; Z99.81 Dependence on supplemental oxygen; I10 Essential (primary) hypertension | CPT/HCPCS: G0463 ==

== ENCOUNTER 2017-09-24 09:15 | Day surgery (SDC) | payer OTHER | END 2017-09-24 10:28 | disposition home or self-care (01) | LOC: WOUND 09:15 | DX: I83.012 Varicose veins of right lower extremity with ulcer of calf (principal); I83.028 Varicose veins of left lower extremity with ulcer other part of lower leg; L97.212 Non-pressure chronic ulcer of right calf with fat layer exposed; L97.922 Non-pressure chronic ulcer of unspecified part of left lower leg with fat layer exposed; I73.9 Peripheral vascular disease, unspecified; L08.9 Local infection of the skin and subcutaneous tissue, unspecified; R60.0 Localized edema; I11.0 Hypertensive heart disease with heart failure; I50.9 Heart failure, unspecified; J44.9 Chronic obstructive pulmonary disease, unspecified; Z99.81 Dependence on supplemental oxygen | CPT/HCPCS: G0463 ==

== ENCOUNTER 2017-10-01 10:15 | Day surgery (SDC) | payer OTHER | END 2017-10-01 12:19 | disposition home health service (06) | LOC: WOUND 10:15 | DX: I83.018 Varicose veins of right lower extremity with ulcer other part of lower leg (principal); I83.028 Varicose veins of left lower extremity with ulcer other part of lower leg; L97.812 Non-pressure chronic ulcer of other part of right lower leg with fat layer exposed; L97.822 Non-pressure chronic ulcer of other part of left lower leg with fat layer exposed; J44.9 Chronic obstructive pulmonary disease, unspecified; Z99.81 Dependence on supplemental oxygen; C64.9 Malignant neoplasm of unspecified kidney, except renal pelvis; I48.91 Unspecified atrial fibrillation; I11.0 Hypertensive heart disease with heart failure; I50.9 Heart failure, unspecified; Z86.73 Personal history of transient ischemic attack (TIA), and cerebral infarction without residual deficits | CPT/HCPCS: G0463 ==

== ENCOUNTER → 2017-11-07 | Outpatient (CLI) | payer OTHER ==
[~2017-11-07] MED LIST changes: +B Complex #11 EACH PO; +B6 PO; +Cefdinir300 MG PO; +D3 PO; +ENTRESTO 24 MG1 EACH PO; +Folic Acid-Vit1 EACH PO; +Nitrostat0.4 MG SL
== END | disposition home or self-care (01) ==
LOC: LAB 10:44 → LAB SHORT 10:44
DX: L03.115 Cellulitis of right lower limb (principal)
CPT/HCPCS: 87070; 87077; 87147; 87186; 87205

== ENCOUNTER → 2018-06-03 | Outpatient (CLI) | payer OTHER | END | disposition home or self-care (01) | LOC: LAB SHORT 13:40 → LAB 13:40 | DX: L03.116 Cellulitis of left lower limb (principal) | CPT/HCPCS: 87070; 87077; 87147; 87186; 87205 ==

== ENCOUNTER → 2018-08-14 | Outpatient (CLI) | payer OTHER | END | disposition home or self-care (01) | LOC: LAB SHORT 10:10 → LAB 10:10 | DX: R05 Cough (principal) | CPT/HCPCS: 87070; 87077; 87186; 87205 ==

== ENCOUNTER 2018-12-13 16:55 | Inpatient (IN) | payer OTHER ==
[~2018-12-13] VITALS: Ht 157.5 cm; Wt 61.6 kg
[~2018-12-13 16:55] MED LIST changes: -D3 PO; +VITAMIN D-32000 UNIT PO
[2018-12-13] MEDS ORDERED: Vibramycin100 MG PO (17:36)
[2018-12-13] MEDS ORDERED: Prednisone50 MG PO (17:36)
[2018-12-13 17:41] LABS: BASOPHILS ABSOLUTE AUTO 0.03 K/mm3 (0.00-0.23); BASOPHILS PERCENT AUTO 0 % (0-2); EOSINOPHILS ABSOLUTE AUTO 0.38 K/mm3 (0.00-0.68); EOSINOPHILS PERCENT AUTO 6 % (0-6); Hematocrit 30.8 % (33.0-51.0); Hemoglobin 8.8 g/dL (11.5-16.0); IMMATURE GRAN ABSOLUTE AUTO 0.03 K/mm3 (0.00-0.10); IMMATURE GRAN PERCENT AUTO 0 % (0-1); LYMPHOCYTES ABSOLUTE AUTO 0.45 K/mm3 (0.84-5.20); LYMPHOCYTES PERCENT AUTO 7 % (21-46); MONOCYTES ABSOLUTE AUTO 0.65 K/mm3 (0.16-1.47); MONOCYTES PERCENT AUTO 9 % (4-13); Mean Corpuscular HGB 23.7 pg (26.0-34.0); Mean Corpuscular HGB Conc 28.6 g/dL (31.5-36.5); Mean Corpuscular Volume 83 fL (80-100); Mean Platelet Volume 12.2 fL (9.1-12.4); NEUTROPHILS PERCENT AUTO 78 % (41-73); Platelet Count 263 K/mm3 (150-400); RDW Coefficient Variation 20.5 % (11.7-14.2); Red Blood Cell Count 3.72 M/mm3 (3.80-5.20); White Blood Cell Count 6.94 K/mm3 (4.00-11.30)
[2018-12-13 18:15] LABS: Alanine Aminotransfer (ALT/SGP 19 U/L (12-78); Albumin, Blood 2.8 g/dL (3.4-5.0); Albumin/Globulin Ratio 0.8 (0.8-1.8); Alk Phos 92 U/L (50-136); Anion Gap 4 mmol/L (6-16); Aspartate Aminotrans (AST/SGOT 17 U/L (12-37); Bilirubin, Total 0.2 mg/dL (0.1-1.0); Blood Urea Nitrogen 80 mg/dL (8-24); Bun/Creatinine Ratio 47.9 (12.0-20.0); CO2, Blood 32 mmol/L (21-32); Calcium, Blood 10.3 mg/dL (8.5-10.1); Chloride, Blood 102 mmol/L (98-108); Creatinine, Blood 1.67 mg/dL (0.40-1.00); Globulin, Blood 3.7 g/dL (2.2-4.0); Glomerular Filtration Rate 31 (60-); Glucose, Blood 125 mg/dL (70-99); Potassium, Blood 5.5 mmol/L (3.5-5.5); Sodium, Blood 138 mmol/L (136-145); Total Protein, Blood 6.5 g/dL (6.4-8.2); Troponin I <0.015 ng/mL (0.000-0.040)
[2018-12-13 18:35] LABS: Digoxin (Lanoxin) 0.13 ug/mL (0.80-2.00)
[2018-12-13] MEDS ORDERED: LANOXIN125 MCG PO (19:39)
[2018-12-13] MEDS ORDERED: Potassium Chlo20 ME1 PO (19:41)
[2018-12-13] MEDS ORDERED: PYRI100 PO (19:42)
[2018-12-13] MEDS ORDERED: LEVOCETIRIZINE D5 MG PO (19:42)
[2018-12-13] MEDS ORDERED: Vitamin B Comple1 EA PO (19:43)
[2018-12-13] MEDS ORDERED: Calcitriol0.5 MCG PO (19:47)
[2018-12-13 20:20] LABS: International Normalized Ratio 2.76; Prothrombin Time Results 26.7 Sec (9.7-11.5)
--- NOTE | 2018-12-14 00:33 | NUR ---
12/03/182139 PT ARRIVED TO ROOM FROM ER VIA [facility] IN STABLE CONDITION. PT REPORTED A LITTLE SOB, SHE IS ON 3L O2 NC AT 94%. 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 THE L LEG HAS OPEN SORES AND REDNESS. THE R FOOT HAS A OPEN SORE ON THE OUTER SIDE. PHOTOS WERE DONE. THERE IS A DRESSING ON THE L LEG. NO OTHER APPARENT SIGNS OF DISTRESS. CALL LIGHT IS IN REACH.
--- NOTE | 2018-12-14 02:12 | NUR ---
0000 PT SITTING UP IN BED, AWAKE, WATCHING TV. DENIES NEED FOR ANYTHING AT THIS TIME. NO APPARENT SIGNS OF DISTRESS. CALL LIGHT IS IN REACH.
--- NOTE | 2018-12-14 02:13 | NUR ---
PT SITTING UP IN BED. AWAKE, WATCHING TV. NO APPARENT SIGNS OF DISTRESS. CALL LIGHT IS IN REACH.
--- NOTE | 2018-12-14 04:27 | NUR ---
PT REQUESTED AND RECIEVED PAIN MEDICATION. WILL EVAL FOR EFFECT. PT SCRACHTED OUT HER IV ON ACCIDENT. WILL GET A NEW IV. NO OTHER APPARENT SIGNS OF DISTRESS. CALL LIGHT IS IN REACH.
--- NOTE | 2018-12-14 05:06 | NUR ---
PT IS AAO X 3, REPORTS PAIN ALL OVER, GOT 2 NORCO X 1. HAS STASIS DERMATITIS ON BILAT LE'S. BOTH LEGS HAVE DRY FLAKY SKIN. THE L LEG HAS OPEN SORES WELL A SMALL SORE ON THE R FOOT. PHOTOS WERE DONE. THE L LEG HAS A DRESSING ON IT. PT HAS A NON PRODUCTIVE COUGH AND WHEN SHE HAS A COUGHING FIT SHE HAS ANXIETY WITH IT. PT SCRATCHED OUT HER PREVIOUS IV AND NOW HAS A NEW ONE, 22G ON HER R HAND. NEED TO CLARIFY A COUPLE OF MEDICATIONS WITH HER SON THIS AM.
[2018-12-14 05:44] LABS: BASOPHILS PERCENT AUTO 0 % (0-2); EOSINOPHILS PERCENT AUTO 0 % (0-6); Hematocrit 31.1 % (33.0-51.0); Hemoglobin 8.8 g/dL (11.5-16.0); IMMATURE GRAN ABSOLUTE AUTO 0.02 K/mm3 (0.00-0.10); IMMATURE GRAN PERCENT AUTO 1 % (0-1); LYMPHOCYTES PERCENT AUTO 7 % (21-46); MONOCYTES ABSOLUTE AUTO 0.14 K/mm3 (0.16-1.47); MONOCYTES PERCENT AUTO 5 % (4-13); Mean Corpuscular HGB 22.7 pg (26.0-34.0); Mean Corpuscular HGB Conc 28.3 g/dL (31.5-36.5); NEUTROPHILS ABSOLUTE AUTO 2.67 K/mm3 (1.96-9.15); NEUTROPHILS PERCENT AUTO 88 % (41-73); Platelet Count 256 K/mm3 (150-400); RDW Coefficient Variation 20.6 % (11.7-14.2); RDW Standard Deviation 59.4 fL (35.1-46.3); Red Blood Cell Count 3.87 M/mm3 (3.80-5.20); White Blood Cell Count 3.03 K/mm3 (4.00-11.30)
--- NOTE | 2018-12-14 05:47 | NUR ---
PT SITTING UP IN BED, NEW IV PLACED. DENIES NEED FOR ANYTHING ELSE AT THIS TIME. NO APPARENT SIGNS OF DISTRESS. CALL LIGHT IS IN REACH. NO OTHER CHANGES THIS SHIFT.
[2018-12-14 06:01] LABS: International Normalized Ratio 2.69; Prothrombin Time Results 26.1 Sec (9.7-11.5)
[2018-12-14 06:13] LABS: Bun/Creatinine Ratio 53.4 (12.0-20.0); Calcium, Blood 9.5 mg/dL (8.5-10.1); Creatinine, Blood 1.48 mg/dL (0.40-1.00); Potassium, Blood 4.8 mmol/L (3.5-5.5)
[2018-12-14 06:24] LABS: Mean Corpuscular Volume 80 fL (80-100)
[2018-12-14] MEDS ORDERED: ALLEGRA ALLERG180 MG PO (06:54)
[2018-12-14 08:13] LABS: Source, Urine Clean Catch
[2018-12-14 08:39] LABS: Appearance, Urine Clear (Clear); Bilirubin, Urine Neg (Neg); Blood, Urine Neg (Neg); Color, Urine Yellow (P-Yellow); Glucose Qualitative, Urine Neg (Neg); Ketones, Urine Neg (Neg); Leukocyte Esterase, Urine Neg (Neg); Nitrite, Urine Neg (Neg); Protein, Urine Neg (Neg); Urobilinogen, Urine NORM (Normal)
[2018-12-14] MEDS ORDERED: CALC.25 PO (08:50)
[2018-12-14] MEDS ORDERED: [UNRECOGNIZED DRUG - OTHER] PO (08:53)
--- NOTE | 2018-12-14 12:14 | NUR ---
echocardiogram completed
--- NOTE | 2018-12-14 18:12 | NUR ---
SHIFT SUMMARY PATIENT IS PLEASANT BUT FORGETFUL. SBA TO THE BATHROOM. NO ACUTE CONCERNS FROM THE PATIENT. SHE HAD AN ECHO TODAY AND IS CURRENTLY ON DIURETICS. PATIENT IS PLEASANT.
--- NOTE | 2018-12-15 05:34 | NUR ---
SUMMARY: PT IS ORIENTED BUT FORGETFULL AT TIMES SO BED ALARM ON FOR POSSIBLE IMPULSIVITY. 1P ASSIST TO TOILET AND ATTENDS CHANGED PRN FOR URGE INCONTINENCE. NORCO RECIEVED X1 FOR TOLERABLE CONTROL OF CHRONIC BACK PAIN. 2L FLUID RESTRICT MAINTAINED AND PT TOLERATED PILLS CRUSHED IN APPLESAUCE. BLE'S REMAIN EDEMATOUS W/VENOUS STASIS DERMATITIS AND WERE ELEVATED. DX CHANGED TO LLE PER PT REQUEST. SHE REMAINS ON 3L O2 PER HOME DOSE W/RESPS E/U AND SPO2 WNL. VSS AND AFEBRILE, NO ACUTE CHANGES. WCTM AND REPORT TO DAY RN.
[2018-12-15 06:00] LABS: International Normalized Ratio 2.64; Prothrombin Time Results 25.6 Sec (9.7-11.5)
[2018-12-15 06:10] LABS: Bun/Creatinine Ratio 42.7 (12.0-20.0); Calcium, Blood 9.4 mg/dL (8.5-10.1); Creatinine, Blood 1.78 mg/dL (0.40-1.00); Potassium, Blood 4.3 mmol/L (3.5-5.5)
--- NOTE | 2018-12-15 18:16 | NUR ---
SHIFT SUMMARY PATIENT IS PLEASANT WITH OCCASIONAL CONFUSION. NO ACUTE CONCERNS ACCORDING TO PATIENT AT THIS TIME. SHE FEELS THAT SHE IS READY TO GO HOME. CURRENTLY SHE IS RESTING, ON 3L O2 VIA NC FOR PATIENT COMFORT SHE TITRATES BETWEEN 2-4L AT HOME FOR HER COMFORT AND TO FIGHT DYSPNEA UPON EXERTION.
[2018-12-16 05:52] LABS: International Normalized Ratio 2.43; Prothrombin Time Results 23.8 Sec (9.7-11.5)
[2018-12-16 05:59] LABS: Bun/Creatinine Ratio 39.4 (12.0-20.0); Calcium, Blood 9.8 mg/dL (8.5-10.1); Creatinine, Blood 1.55 mg/dL (0.40-1.00); Magnesium, Blood 2.2 mg/dL (1.6-2.4); Potassium, Blood 4.7 mmol/L (3.5-5.5)
--- NOTE | 2018-12-16 06:19 | NUR ---
SUMMARY: A/O, SPECIFIES NEEDS AND SBA IN ROOM TO TOILET PRN. LS HAVE REMAINED COARSE W/PERIODIC WHEEZES, RT PROVIDED BX TX'S PRN AND PT ENCOURAGED TO DEEP BREATH AND COUGH. FLUTTER WAS ALSO ORDERED TO ASSIST IN MOVING SECRETIONS. SHE REMAINS ON 3L O2 BUT TEMPORARILY DESATS FOLLOWING COUGHING FITS AND BECOMES TACHYPNEIC UNTIL SHE CATCHES HER BREATH. 2L F.R. MAINTAINED AND PT TOLERATED PILLS CRUSHED IN APPLESAUCE. SHE REFUSED BOWEL MEDS TONIGHT. [employer] PROVIDED X2 DOSES FOR BACK AND LEG PAIN. VENOUS STASIS DERMATITIS PERSISTS TO BLE'S AND DX TO LLE IS C/D/I. NO ACUTE CHANGES, VSS/AFEBRILE. WCTM AND REPORT TO DAY RN.
--- NOTE | 2018-12-16 19:21 | NUR ---
SHIFT SUMMARY: NO ACUTE CHANGES TO REPORT THIS SHIFT. PT A&O; CALM AND COOPERATIVE WITH CARE. MEDICATED FOR NECK/BACK PAIN PER EMAR. STANDING WEIGHT TODAY & STANDING WEIGHT 12/17 IN AM R/T CONTINUING DIURESIS. EXPECTED D/C HOME 12/17. REPROT GIVEN TO ONCOMING RN.
[2018-12-17 05:18] LABS: International Normalized Ratio 2.68
[2018-12-17 05:22] LABS: Bun/Creatinine Ratio 36.9 (12.0-20.0); Calcium, Blood 8.7 mg/dL (8.5-10.1); Creatinine, Blood 1.68 mg/dL (0.40-1.00); Potassium, Blood 4.2 mmol/L (3.5-5.5)
--- NOTE | 2018-12-17 06:32 | NUR ---
SHIFT SUMMARY: 88 Y/O FEMALE, SBA TO THE COMMODE. HAS HAD A GOOD NIGHT, SHE SLEPT MOST OF THE NIGHT, WITH OCCATIONAL SPELLS OF COUGHING HERE AND THERE. MEDS WERE GIVEN PER EMAR. SHE ATTEMPTED SEVERAL TIMES TO HAVE A BOWEL MOVEMENT BUT REFUSED TO TAKE HER STOOL SOFTNER. SHE HAD SMEARS ONLY. REFUSED TO HAVE PRUNE JUICE. NO OTHER CHANGES WERE TO NOTE THIS SHIFT. WILL REPORT TO DAY SHIFT RN.
--- NOTE | 2018-12-17 17:47 | NUR ---
SUMMARY- PT ALERT AND ORIENTED. SITS AT THE SIDE OF BED FOR ALL MEALS, GETS UP OOB SBA. VOIDS AND HAD BM TODAY. ON 2L FLUID RESTRICTION. COMPLIANT WITH RES. TOLERATING FOOD AND FLUIDS. CONT WITH MOIST COUGH. HAS GEN BODY EDEMA +2. FAMILY HERE TO VISIT ON AND OFF T/O THE DAY. VSS. GLUCOSE IN GOOD RANGE. DR CHEN TO SEE PT THIS AM, PLAN SEEMS TO BE TO GO HOME IF PT DIURESIS WELL. WILL REPORT TO DANA FLORES.
[2018-12-18 05:32] LABS: International Normalized Ratio 2.76; Prothrombin Time Results 26.7 Sec (9.7-11.5)
[2018-12-18 05:42] LABS: Bun/Creatinine Ratio 37.9 (12.0-20.0); Creatinine, Blood 1.69 mg/dL (0.40-1.00); Magnesium, Blood 2.2 mg/dL (1.6-2.4); Potassium, Blood 4.7 mmol/L (3.5-5.5)
--- NOTE | 2018-12-18 06:48 | NUR ---
12/18/18 0630 SLEPT WELL. AWAKNED FOR AM MED AND C/O BACK PAIN. SEE MAR FOR MEDS GIVEN. UP TO BSC SEVERAL TIMES WITH HELP UP. UNEVENFUL NIGHT. VITALS STABLE.
[2018-12-18] MEDS ORDERED: TORSE20 PO (12:34)
--- NOTE | 2018-12-18 13:34 | NUR ---
DISCHARGE: PER MD ORDERS, PATIENT IS READY FOR DISCHARGE. PATIENT IS ALERT AND ORIENTED WITH OCCASIONAL FORGETFULNESS. PATIENT IS STEADY ON FEET TO THE RESTROOM. NO SOB WITH ACTIVITY OR AT REST NOTED. PATIENT REPORTS FEELING BETTER. PATIENT IS STABLE ON 3L/MIN VIA NC. PATIENT DENIES PAIN OR DISCOMFORT. SON IS AT BEDSIDE. SON IS ABLE TO DISCUSS PATIENT'S CONDITION AND MEDICATIONS WITH EASE. PATIENT HAS A PRE-SCHEDULED APPOINTMENT WITH DR. GUEVARA TOMORROW THAT THE SON WILL TAKE HER TO. PATIENT DISCHARGED IN WHEELCHAIR WITH DEBUG TECHNICIAN. PATIENT STABLE AT TIME OF DISCHARGE.
== END 2018-12-18 13:20 | disposition home or self-care (01) | DRG 291 ==
LOC: ER 16:55 → MEDS 20:05 → ERHOLD 20:05 → MEDS 20:05
PROVIDERS: Emergency Medicine; Hospitalist; Nurse Practitioner Acute Care; ADMIT Internal Medicine
DX: I13.0 Hypertensive heart and chronic kidney disease with heart failure and stage 1 through stage 4 chronic kidney disease, or unspecified chronic kidney disease (principal); J96.21 Acute and chronic respiratory failure with hypoxia; I50.43 Acute on chronic combined systolic (congestive) and diastolic (congestive) heart failure; I48.20 Chronic atrial fibrillation, unspecified; J44.1 Chronic obstructive pulmonary disease with (acute) exacerbation; L97.909 Non-pressure chronic ulcer of unspecified part of unspecified lower leg with unspecified severity; N39.0 Urinary tract infection, site not specified; N18.9 Chronic kidney disease, unspecified; E11.22 Type 2 diabetes mellitus with diabetic chronic kidney disease; R13.10 Dysphagia, unspecified; Z99.81 Dependence on supplemental oxygen; I48.91 Unspecified atrial fibrillation; Z79.01 Long term (current) use of anticoagulants; I25.2 Old myocardial infarction; Z86.73 Personal history of transient ischemic attack (TIA), and cerebral infarction without residual deficits; F03.90 Unspecified dementia, unspecified severity, without behavioral disturbance, psychotic disturbance, mood disturbance, and anxiety; M81.0 Age-related osteoporosis without current pathological fracture; G62.9 Polyneuropathy, unspecified; Z85.528 Personal history of other malignant neoplasm of kidney; Z87.891 Personal history of nicotine dependence; Z90.5 Acquired absence of kidney; Z66 Do not resuscitate
CPT/HCPCS: 36415; 71045; 71046; 80048; 80053; 80162; 81003; 82947; 83735; 83880; 84145; 84484; 85025; 85610; 93005; 93010; 93306; 94640; 94667; 94668; 94760; 96365; 96366; 96374; 96375; 96376; 97110; 97162; 97530; 98960; 99285-25; A9270; A9270-GY; G0378; J1940; J1956; J7050

== ENCOUNTER 2018-12-27 11:55 | Emergency (ER) | payer OTHER ==
[~2018-12-27] VITALS: Ht 157.5 cm; Wt 62.6 kg
[~2018-12-27 11:55] MED LIST changes: +ALLEGRA ALLERG180 MG PO; +CALC.25 PO; +Calcitriol0.5 MCG PO; +LEVOCETIRIZINE D5 MG PO; +PYRI100 PO; +Potassium Chlo20 ME1 PO; +Prednisone50 MG PO; +TORSE20 PO; +Vibramycin100 MG PO; +Vitamin B Comple1 EA PO; +[UNRECOGNIZED DRUG - OTHER] PO
[2018-12-27 14:04] LABS: PCO2 Arterial 57.6 mmHg (35-45); PO2 Arterial 65.9 mmHg (80-100); pH Blood Arterial 7.38 (7.35-7.45)
[2018-12-27 14:30] LABS: BASOPHILS ABSOLUTE AUTO 0.05 K/mm3 (0.00-0.23); BASOPHILS PERCENT AUTO 1 % (0-2); EOSINOPHILS ABSOLUTE AUTO 0.55 K/mm3 (0.00-0.68); EOSINOPHILS PERCENT AUTO 10 % (0-6); Hematocrit 31.4 % (33.0-51.0); Hemoglobin 8.9 g/dL (11.5-16.0); IMMATURE GRAN ABSOLUTE AUTO 0.01 K/mm3 (0.00-0.10); IMMATURE GRAN PERCENT AUTO 0 % (0-1); LYMPHOCYTES ABSOLUTE AUTO 0.36 K/mm3 (0.84-5.20); LYMPHOCYTES PERCENT AUTO 7 % (21-46); MONOCYTES ABSOLUTE AUTO 0.51 K/mm3 (0.16-1.47); MONOCYTES PERCENT AUTO 9 % (4-13); Mean Corpuscular HGB 22.8 pg (26.0-34.0); Mean Corpuscular HGB Conc 28.3 g/dL (31.5-36.5); Mean Corpuscular Volume 80 fL (80-100); Mean Platelet Volume 11.7 fL (9.1-12.4); NEUTROPHILS ABSOLUTE AUTO 3.94 K/mm3 (1.96-9.15); NEUTROPHILS PERCENT AUTO 73 % (41-73); Platelet Count 251 K/mm3 (150-400); RDW Coefficient Variation 19.7 % (11.7-14.2); RDW Standard Deviation 57.5 fL (35.1-46.3); Red Blood Cell Count 3.91 M/mm3 (3.80-5.20); White Blood Cell Count 5.42 K/mm3 (4.00-11.30)
[2018-12-27 14:53] LABS: Albumin, Blood 2.5 g/dL (3.4-5.0); Albumin/Globulin Ratio 0.7 (0.8-1.8); Bilirubin, Total 0.2 mg/dL (0.1-1.0); Bun/Creatinine Ratio 51.9 (12.0-20.0); Calcium, Blood 9.9 mg/dL (8.5-10.1); Creatinine, Blood 1.81 mg/dL (0.40-1.00); Globulin, Blood 3.6 g/dL (2.2-4.0); Potassium, Blood 5.5 mmol/L (3.5-5.5); Total Protein, Blood 6.1 g/dL (6.4-8.2)
[2018-12-27 15:37] LABS: Source, Urine Clean Catch
[2018-12-27 15:41] LABS: Bilirubin, Urine Neg (Neg); Blood, Urine Neg (Neg); Glucose Qualitative, Urine Neg (Neg); Ketones, Urine Neg (Neg); Leukocyte Esterase, Urine 1+ (Neg); Nitrite, Urine Neg (Neg); Protein, Urine Neg (Neg); Specific Gravity, Urine 1.015 (1.003-1.022); Urobilinogen, Urine NORM (Normal)
[2018-12-27 15:44] LABS: Appearance, Urine Clear (Clear); Color, Urine Yellow (P-Yellow)
[2018-12-27 15:51] LABS: Bacteria Mod /hpf; Red Blood Cells, Urine 0-2 /hpf (0-2); Renal Epithelial Few /hpf (0-Rare); Squamous Epithelial Cells Few /hpf (Few); White Blood Cells, Urine 0-2 /hpf (0-5)
== END 2018-12-27 16:35 | disposition home or self-care (01) ==
LOC: ER 11:55
PROVIDERS: Emergency Medicine
DX: R41.0 Disorientation, unspecified (principal); R53.1 Weakness; N39.0 Urinary tract infection, site not specified; I48.91 Unspecified atrial fibrillation; I11.0 Hypertensive heart disease with heart failure; I50.9 Heart failure, unspecified; J44.9 Chronic obstructive pulmonary disease, unspecified; Z85.048 Personal history of other malignant neoplasm of rectum, rectosigmoid junction, and anus; Z87.891 Personal history of nicotine dependence; Z88.0 Allergy status to penicillin; Z88.8 Allergy status to other drugs, medicaments and biological substances; Z88.5 Allergy status to narcotic agent; Z88.2 Allergy status to sulfonamides; Z79.899 Other long term (current) drug therapy; Z79.01 Long term (current) use of anticoagulants
CPT/HCPCS: 36600; 71046; 80053; 81001; 82803; 83880; 85025; 87086; 94640; 99284-25

== ENCOUNTER 2019-01-08 17:48 | Inpatient (IN) | payer OTHER ==
[~2019-01-08] VITALS: Ht 160 cm; Wt 59.8 kg
[2019-01-08] MEDS ORDERED: CARV6.25 PO (18:48)
[2019-01-08] MEDS ORDERED: LANOXIN125 MCG PO (18:48)
[2019-01-08] MEDS ORDERED: CALC.25 PO (18:48)
[2019-01-08] MEDS ORDERED: ALBU2.5V5 (18:48)
[2019-01-08] MEDS ORDERED: ALLEGRA ALLERG180 MG PO (18:49)
[2019-01-08] MEDS ORDERED: DONEPEZIL HCL10 MG PO (18:49)
[2019-01-08] MEDS ORDERED: HYDR1TAB94 PO (18:49)
[2019-01-08] MEDS ORDERED: POTA20PAC PO (18:50)
[2019-01-08] MEDS ORDERED: HYOS0.375T PO (18:50)
[2019-01-08] MEDS ORDERED: WARF4 PO (18:51)
[2019-01-08] MEDS ORDERED: ENTRESTO 24 MG1 EACH PO (18:51)
[2019-01-08] MEDS ORDERED: TIOT18 INH (18:51)
[2019-01-08] MEDS ORDERED: PYRI100 PO (18:51)
[2019-01-08] MEDS ORDERED: SPIR25 PO (18:51)
[2019-01-08] MEDS ORDERED: TORSE20 PO (18:51)
[2019-01-08 18:52] LABS: BASOPHILS ABSOLUTE AUTO 0.02 K/mm3 (0.00-0.23); BASOPHILS PERCENT AUTO 0 % (0-2); EOSINOPHILS ABSOLUTE AUTO 0.37 K/mm3 (0.00-0.68); EOSINOPHILS PERCENT AUTO 6 % (0-6); Hematocrit 18.9 % (33.0-51.0); IMMATURE GRAN ABSOLUTE AUTO 0.02 K/mm3 (0.00-0.10); IMMATURE GRAN PERCENT AUTO 0 % (0-1); LYMPHOCYTES ABSOLUTE AUTO 0.39 K/mm3 (0.84-5.20); LYMPHOCYTES PERCENT AUTO 7 % (21-46); MONOCYTES ABSOLUTE AUTO 0.49 K/mm3 (0.16-1.47); MONOCYTES PERCENT AUTO 8 % (4-13); Mean Corpuscular HGB Conc 29.6 g/dL (31.5-36.5); Mean Corpuscular Volume 78 fL (80-100); Mean Platelet Volume 11.9 fL (9.1-12.4); NEUTROPHILS ABSOLUTE AUTO 4.73 K/mm3 (1.96-9.15); NEUTROPHILS PERCENT AUTO 79 % (41-73); Platelet Count 263 K/mm3 (150-400); RDW Coefficient Variation 20.3 % (11.7-14.2); RDW Standard Deviation 56.2 fL (35.1-46.3); Red Blood Cell Count 2.44 M/mm3 (3.80-5.20); White Blood Cell Count 6.02 K/mm3 (4.00-11.30)
[2019-01-08 18:55] LABS: Hemoglobin 5.6 g/dL (11.5-16.0)
[2019-01-08] MEDS ORDERED: Calcitriol0.5 MCG PO (19:21)
[2019-01-08] MEDS ORDERED: Isosorbide Mono30 MG PO (19:24)
[2019-01-08] MEDS ORDERED: ALBU90OI INH (19:24)
[2019-01-08] MEDS ORDERED: VITAMIN D-32000 UNIT PO (19:25)
[2019-01-08] MEDS ORDERED: B Complex-Foli1 EACH PO (19:25)
[2019-01-08 19:26] LABS: Digoxin (Lanoxin) 0.18 ug/mL (0.80-2.00)
[2019-01-08 19:33] LABS: Albumin, Blood 2.4 g/dL (3.4-5.0); Albumin/Globulin Ratio 0.8 (0.8-1.8); Bilirubin, Total 0.2 mg/dL (0.1-1.0); Bun/Creatinine Ratio 81.7 (12.0-20.0); Calcium, Blood 9.2 mg/dL (8.5-10.1); Creatinine, Blood 2.18 mg/dL (0.40-1.00); Globulin, Blood 3.2 g/dL (2.2-4.0); Total Protein, Blood 5.6 g/dL (6.4-8.2)
[2019-01-08 19:35] LABS: Prothrombin Time Results >90.0 Sec (9.7-11.5)
[2019-01-08 19:38] LABS: International Normalized Ratio No Calc
[2019-01-09 06:58] LABS: Hematocrit 24.6 % (33.0-51.0); Hemoglobin 7.7 g/dL (11.5-16.0); Mean Corpuscular HGB 24.7 pg (26.0-34.0); Mean Corpuscular HGB Conc 31.3 g/dL (31.5-36.5); Mean Corpuscular Volume 79 fL (80-100); Mean Platelet Volume 11.8 fL (9.1-12.4); Platelet Count 244 K/mm3 (150-400); RDW Coefficient Variation 19.8 % (11.7-14.2); RDW Standard Deviation 57.1 fL (35.1-46.3); Red Blood Cell Count 3.12 M/mm3 (3.80-5.20); White Blood Cell Count 6.19 K/mm3 (4.00-11.30)
--- NOTE | 2019-01-09 07:23 | NUR ---
[facility] 2350; PT ALERT, CONFUSED AT TIMES; PT RECEIVING RBC AND FFP; GI CONSULT CALLED FOR DR. MCWILLIAMS; PT IN AFIB HR IN 60'S-70'S; IV INFUSING APPROPRIATELY; SBA TO BSC; PT CALLS OUT AND NEEDS REMINDED TO USE CALL LIGHT; PT IS ANXIOUS AND STATES SHE IS NERVOUS ABOUT GI SCOPE; STOOL IS DARK IN COLOR; PT ON 3L NC O2 SATS >92; CALL LIGHT IN REACH; BED IN LOWEST POSITION.
[2019-01-09 07:34] LABS: Albumin, Blood 2.5 g/dL (3.4-5.0); Albumin/Globulin Ratio 0.8 (0.8-1.8); Bilirubin, Total 1.1 mg/dL (0.1-1.0); Bun/Creatinine Ratio 83.9 (12.0-20.0); Calcium, Blood 8.8 mg/dL (8.5-10.1); Creatinine, Blood 1.99 mg/dL (0.40-1.00); Globulin, Blood 3.3 g/dL (2.2-4.0); Potassium, Blood 4.9 mmol/L (3.5-5.5); Total Protein, Blood 5.8 g/dL (6.4-8.2)
[2019-01-09 07:41] LABS: Prothrombin Time Results 45.6 Sec (9.7-11.5)
[2019-01-09 07:44] LABS: International Normalized Ratio 4.98
--- NOTE | 2019-01-09 08:33 | NUR ---
PATIENT GAVE STUDENT PERMISSION TO PROVIDE CARE ON 01/09/19.
[2019-01-09 12:58] LABS: Hematocrit 21.7 % (33.0-51.0)
--- NOTE | 2019-01-09 13:34 | NUR ---
Spoke with Pt's bedside nurse and Gopal from music therapy. Pt currently resting comfortable after music therapy session. Lucretia reports Pt would benefit from no visitors at this time and will contact palliative care once she is awake. Called and spoke with Pt's son Luis by phone. Listened as Luis reports him and his brother have been considering goals of care for some time now. Educated Luis on disease processs and trajectory of disease. Pt's needs for care including the possibility for a higher level of care may be required at some point. Listened as Luis explains Pt's needs. Currently Pt has a caregiver come into the home for 5 hours a day. Pt needs assistance with bathing and dressing. She experiences incontinence of bowel and bladder. She also requires stand by assistance with ambulation. Discussed comfort care and hospice as an option. Educated on hospice philosophy with V/U made by Luis. Luis reports experiencing hospice with his dad and mother in law in the past. Luis expresses appreciation of call and reports no other concerns at this time. Palliative Care will remain available.
--- NOTE | 2019-01-09 14:11 | NUR ---
Pt visit this afternoon. Pt resting in bed with her eyes closed upon arrival. She awakes with gentle voice. Pt denies pain at this time and states "I'm tired". Pt is agreeable for visit at a later time. Pt appears dyspneic as evidenced by work of breathing. Currently wearing oxygen. Spoke with bedside nurse Lucretia and discussed case. Palliative Care will remain available.
[2019-01-09 15:23] LABS: International Normalized Ratio 3.67
[2019-01-09 17:38] LABS: Prothrombin Time Results 34.6 Sec (9.7-11.5)
--- NOTE | 2019-01-09 17:43 | NUR ---
Call to Dr Lopes regarding labile blood pressures today. New order received for 1 uPRBC this evening. The pt has been complaining of pain, family states that she has arthritis, but the pt states that she doesn't. Family state that the pt takes 4-5 tabs of [place] 5/325 every day. Order received from Dr. Lopes for pain medication. The pt has had one bowel movement within the past hour, dark brown, small, formed. No other bowel movements today.
--- NOTE | 2019-01-09 18:54 | NUR ---
Blood pressure again noted after she had her 3.125 mg dose of coreg this evening. Presently she is receiving blood transfusion, and states that she has had no relief from her pain after getting a [place] about 45 minutes before. Blood pressure slightly improved at this time, 94/41.
--- NOTE | 2019-01-09 19:26 | NUR ---
Bedside report was given to Lesley Marc and SANDRA Whittaker. The pt's blood pressure is improving. Blood transfusion initally started at 50 cc/hour for the first 15 minutes, and then increased to 100 cc/hour. Infusion rate started slowly due to pt's heart disease, and impaired renal function. She is alert, forgetful, but is using the call light to call for toileting assistance at this time.
[2019-01-09 23:37] LABS: Hematocrit 25.1 % (33.0-51.0)
--- NOTE | 2019-01-10 02:29 | NUR ---
ASSUMED CARE APPROXIMATELY 1900; PT CALLING OUT AND ANXIOUS; PRBC INFUSING; PT UP TO BSC; SMALL DARK BROWN STOOL W/ CLOTS NOTED; STRONG ODOR NOTED; GI PHYSICIAN CONSULTED PT AND DISCUSSED SCOPE SCHEDULED FOR 01/10; PHYSICIAN CALLED FAMILY TO DISCUSS; PT QUITE ANXIOUS; NEEDS CONSISTENT REASSURANCE; PT ON 3L NC W/ O2 SATS >92; WILL CONTINUE TO MONITOR AND ASSESS UNTIL DAY SHIFT RN.
[2019-01-10 06:18] LABS: BASOPHILS ABSOLUTE AUTO 0.02 K/mm3 (0.00-0.23); BASOPHILS PERCENT AUTO 0 % (0-2); EOSINOPHILS ABSOLUTE AUTO 0.12 K/mm3 (0.00-0.68); EOSINOPHILS PERCENT AUTO 2 % (0-6); Hematocrit 24.4 % (33.0-51.0); Hemoglobin 7.7 g/dL (11.5-16.0); IMMATURE GRAN ABSOLUTE AUTO 0.02 K/mm3 (0.00-0.10); IMMATURE GRAN PERCENT AUTO 0 % (0-1); LYMPHOCYTES ABSOLUTE AUTO 0.34 K/mm3 (0.84-5.20); LYMPHOCYTES PERCENT AUTO 7 % (21-46); MONOCYTES ABSOLUTE AUTO 0.49 K/mm3 (0.16-1.47); MONOCYTES PERCENT AUTO 10 % (4-13); Mean Corpuscular HGB Conc 31.6 g/dL (31.5-36.5); Mean Platelet Volume 11.9 fL (9.1-12.4); NEUTROPHILS ABSOLUTE AUTO 4.13 K/mm3 (1.96-9.15); NEUTROPHILS PERCENT AUTO 81 % (41-73); Platelet Count 220 K/mm3 (150-400); RDW Coefficient Variation 20.2 % (11.7-14.2); RDW Standard Deviation 59.7 fL (35.1-46.3); Red Blood Cell Count 2.96 M/mm3 (3.80-5.20); White Blood Cell Count 5.12 K/mm3 (4.00-11.30)
[2019-01-10 06:22] LABS: Mean Corpuscular Volume 82 fL (80-100)
[2019-01-10 06:31] LABS: International Normalized Ratio 1.92; Prothrombin Time Results 19.2 Sec (9.7-11.5)
[2019-01-10 06:35] LABS: Bun/Creatinine Ratio 81.2 (12.0-20.0); Calcium, Blood 8.5 mg/dL (8.5-10.1); Creatinine, Blood 1.76 mg/dL (0.40-1.00); Magnesium, Blood 2.2 mg/dL (1.6-2.4); Potassium, Blood 4.3 mmol/L (3.5-5.5)
--- NOTE | 2019-01-10 07:38 | NUR ---
ASSUMED CARE: PT RESTING IN BED. DAUGHTER AT BEDSIDE. NO ACUTE NEEDS OR CONCERNS NOTED AT THIS TIME.
[2019-01-10 12:53] LABS: Hematocrit 23.9 % (33.0-51.0); Hemoglobin 7.3 g/dL (11.5-16.0)
--- NOTE | 2019-01-10 13:53 | NUR ---
H AND H RESULT DECREASED FROM PREVIOUS. CALL TO DR MCWILLIAMS WHO STATES HE IS DOING EGD THIS AFTERNOON AND TO CALL HOSPITALIST FOR BLOOD ORDERS. CALL TO DR MORALES. SEE NEW ORDERS
--- NOTE | 2019-01-10 15:18 | NUR ---
PT TAKEN TO DAY SURGERY. ESCORTED BY DAY SURGERY STAFF
--- NOTE | 2019-01-10 15:38 | NUR ---
TO SDS VIA [facility]. ON 2L O2 WITH NC. BLOOD RUNNING. DUONED GIVEN PER ORDERS BY DR. PATEL. PT WITH BILAT CRACKLES T/O. History, Chart, Medications and Allergies reviewed before start of procedure. Pre-Op teaching done. Pt verbalizes understanding.
--- NOTE | 2019-01-10 15:55 | NUR ---
01/10/19 1555 Florinda Trammell PROCEDURE ROOM ENDO ROOM #1. MONITOR INTACT WITH CONTINUOUS PULSE OXIMETRY AND INTERMITTENT BP.
--- NOTE | 2019-01-10 16:23 | NUR ---
PATIENT ALERT, TALKING WHEN SPOKEN TO, BREATHING 2L O2/NC. TRANSPORT TO PCU VIA GURNEY.
--- NOTE | 2019-01-10 19:42 | NUR ---
SHIFT SUMMARY: PT RETURNED FROM DAY SURGERY WITH UNIT OF BLOOD STILL INFUSING. FAMILY AT BEDSIDE. DR MCWILLIAMS CAME TO SEE PT AND INFORMED FAMILY OF HIS PLAN. O2 2L IN PLACE, PT APPEARS WITHOUT NEEDS AT THIS TIME.
[2019-01-10 20:43] LABS: Hematocrit 31.7 % (33.0-51.0); Hemoglobin 9.9 g/dL (11.5-16.0)
--- NOTE | 2019-01-10 21:14 | NUR ---
[place] of Care: Care assumed at 1900hr. Patient sitting upright in bed watching tv, visiting with family at bedside. States to be comfortable but c/o general pain, states she takes [place] at home for pain. Planned to give prn [place], but patient quickly falling to sleep when not stimulated by staff. Patient agreed with holding prn [place] at this time, will continue to monitor. Denies dyspnea/SOB, O2-92-95% on 2L/NC, VSS. Heart rhythm shows A-fib, 60's-80's. ABD appears slightly distended and patients says her ABD is "sore", but denies pain with palpation. X1 medium black tarry stool at approx 2015hr, repeat (2036hr) H+H stable and increased to 9.9 from 7.3. X2 peripheral IV's patent and intact. Tolerating PO clear liquid diet without difficulty. Call light in reach. Will continue to monitor for pain, safety, comfort.
--- NOTE | 2019-01-11 05:44 | NUR ---
Shift Summary: Patient slept well throughout shift. Continues to be alert/oriented x4 when awake. C/o general pain/discomfort effectively managed with x2 doses of prn [place]. X1 black tarry stool early in shift, but no further bowel movement. VSS remains stable, no s/s of active GI bleeding. Transferred to bedside commode via [id number] x3-4 throughout shift without difficulty. Peripheral IV's x2 remain patent and intact. Call light in reach, makes needs known. Will continue to monitor until report to day shift RN.
[2019-01-11 06:00] LABS: Hematocrit 29.1 % (33.0-51.0); Hemoglobin 8.9 g/dL (11.5-16.0)
[2019-01-11 06:15] LABS: International Normalized Ratio 1.55; Prothrombin Time Results 15.8 Sec (9.7-11.5)
[2019-01-11 06:17] LABS: Bun/Creatinine Ratio 76.7 (12.0-20.0); Calcium, Blood 8.5 mg/dL (8.5-10.1); Creatinine, Blood 1.5 mg/dL (0.40-1.00); Magnesium, Blood 2.4 mg/dL (1.6-2.4); Potassium, Blood 4.2 mmol/L (3.5-5.5)
--- NOTE | 2019-01-11 17:24 | NUR ---
REPORT CALLED TO PINEDA FLORES. PT TRANSFERRED TO ROOM 348 VIA BED FROM PCU 11. FAMILY AWARE OF TRANSFER-CURRENTLY HERE VISITING. PT ASSISTED TO BSC PRIOR TO TRANSFER AND BECAME DYSPNEIC WITH ACTIVITY. REQUIRED REMINDING TO BREATHE IN THROUGH HER NOSE AND OUT HER MOUTH. ON OXYGEN WITH TRANFER. SLIDE SHEET USED TO MOVE HER TO BED.
--- NOTE | 2019-01-11 18:06 | NUR ---
PT TRANSFERED UP FROM PCU THIS AFTERNOON. FAMILY PRESENT IN ROOM WITH PT. PT ORIENTED TO ROOM. PT CURRENTLY UP IN BED EATING DINNER WITH THE ASSISTANCE OF FAMILY. NO NEEDS AT THIS TIME. WILL CONTINUE TO MONITOR.
--- NOTE | 2019-01-11 18:07 | NUR ---
Clinical Visit; Pt is sitting up, she is eating dinner. She is having difficulty keeping her dentures in. They are loose and ill fitting. Her son is cutting up her food and feeding her. He states that this is new: up until a couple weeks ago, she was able to have 5 hour caregiver daily and this was enough. Now, she cannot eat independently and the family have been staying with her at night after they are done working. Pt denies pain, she is laboring slightly to breathe. Poor appetite. They are concerned about her decline. Plans made to follow up with pt tomorrow.
--- NOTE | 2019-01-12 04:43 | NUR ---
SHIFT SUMMARY PT HAS RESTED ON AND OFF THIS SHIFT. PT IS A/O TO SELF, PLACE, AND FOLLOWING DIRECTIONS. SHE IS UNABLE TO TELL ME WHO THE PRESIDENT IS. SHE OCCASIONALLY YELLS OUT AND DOES NOT USE CALL LIGHT. PT SOMETIMES HAS PROBLEMS EXPRESSING WHAT SHE NEEDS AND REPLIES WITH " I DONT KNOW" WHEN ASKED QUESTIONS. PT 1 PA UP OOB TO BSC. VITALS STABLE. ASSESSMENT UNCHANGED. BED IN LOWEST POSITION, CALL LIGHT WITHIN REACH. BED ALARM IN PLACE. WILL CONTINUE TO MONITOR AND REPORT TO ONCOMING RN.
[2019-01-12 04:57] LABS: BASOPHILS ABSOLUTE AUTO 0.04 K/mm3 (0.00-0.23); BASOPHILS PERCENT AUTO 1 % (0-2); EOSINOPHILS ABSOLUTE AUTO 0.33 K/mm3 (0.00-0.68); EOSINOPHILS PERCENT AUTO 5 % (0-6); Hematocrit 32.6 % (33.0-51.0); Hemoglobin 9.8 g/dL (11.5-16.0); IMMATURE GRAN ABSOLUTE AUTO 0.02 K/mm3 (0.00-0.10); IMMATURE GRAN PERCENT AUTO 0 % (0-1); LYMPHOCYTES ABSOLUTE AUTO 0.56 K/mm3 (0.84-5.20); LYMPHOCYTES PERCENT AUTO 8 % (21-46); MONOCYTES ABSOLUTE AUTO 0.61 K/mm3 (0.16-1.47); MONOCYTES PERCENT AUTO 9 % (4-13); Mean Corpuscular HGB 26.3 pg (26.0-34.0); Mean Corpuscular HGB Conc 30.1 g/dL (31.5-36.5); Mean Platelet Volume 11.1 fL (9.1-12.4); NEUTROPHILS ABSOLUTE AUTO 5.25 K/mm3 (1.96-9.15); NEUTROPHILS PERCENT AUTO 77 % (41-73); Platelet Count 220 K/mm3 (150-400); RDW Coefficient Variation 21.1 % (11.7-14.2); RDW Standard Deviation 65.1 fL (35.1-46.3); Red Blood Cell Count 3.73 M/mm3 (3.80-5.20); White Blood Cell Count 6.81 K/mm3 (4.00-11.30)
[2019-01-12 05:05] LABS: Mean Corpuscular Volume 87 fL (80-100)
[2019-01-12 05:07] LABS: International Normalized Ratio 1.42; Prothrombin Time Results 14.6 Sec (9.7-11.5)
[2019-01-12 05:17] LABS: Bun/Creatinine Ratio 65.7 (12.0-20.0); Calcium, Blood 8.9 mg/dL (8.5-10.1); Creatinine, Blood 1.37 mg/dL (0.40-1.00); Potassium, Blood 4.3 mmol/L (3.5-5.5)
--- NOTE | 2019-01-12 10:18 | NUR ---
[facility] PT AND FAMILY ASKED IF THEY HAD A PREFERENCE OF HOME HEALTH AGENCY, THEY HAVE CHOSE [facility] THEY SAID THEY HAVE HAD THEM IN THE PAST, ORDERS FAXED TO [facility]
--- NOTE | 2019-01-12 11:25 | NUR ---
PT DISCHARGED TO HOME WITH HOME HEALTH. IVS REMOVED PRIOR TO DISCHARGE. PT AND [id number] PROVIDED WITH DISCHARGE EDUCATION AND MEDICATION INSTRUCATIONS. [id number] VERBALIZED UNDERSTANDING OF DISCHARGE INSTRUCTIONS. PT ALERT AND ORIENTED AT DISCHARGE. MINIMAL ASSIST NEEDED FOR PT TO TRANSFER TO WHEELCHAIR. PT'S SON BROUGHT HOME O2 FOR TRANSPORTATION HOME. PT TO VEHICLE VIA WHEELCHAIR WITH FAMILY AND DIRECTOR OF BUSINESS CONTINUITY.
== END 2019-01-12 11:25 | disposition home health service (06) | DRG 377 ==
LOC: ER 17:48 → PCU 17:49 → MEDS 01-11 17:28 → ENPENDDIS 01-12 10:27 → MEDS 01-12 11:25
PROVIDERS: Emergency Medicine; Internal Medicine; ADMIT Internal Medicine
PROC: 30233K1 Transfusion of Nonautologous Frozen Plasma into Peripheral Vein, Percutaneous Approach (ICD-10-PCS; principal; 2019-01-09)
PROC: 30233N1 Transfusion of Nonautologous Red Blood Cells into Peripheral Vein, Percutaneous Approach (ICD-10-PCS; 2019-01-09)
PROC: 0DJ08ZZ Inspection of Upper Intestinal Tract, Via Natural or Artificial Opening Endoscopic (ICD-10-PCS; 2019-01-10)
DX: K92.2 Gastrointestinal hemorrhage, unspecified (principal); G93.41 Metabolic encephalopathy; I48.20 Chronic atrial fibrillation, unspecified; I50.42 Chronic combined systolic (congestive) and diastolic (congestive) heart failure; I13.0 Hypertensive heart and chronic kidney disease with heart failure and stage 1 through stage 4 chronic kidney disease, or unspecified chronic kidney disease; N17.9 Acute kidney failure, unspecified; N18.4 Chronic kidney disease, stage 4 (severe); J44.9 Chronic obstructive pulmonary disease, unspecified; Z99.81 Dependence on supplemental oxygen; Z79.01 Long term (current) use of anticoagulants; M81.0 Age-related osteoporosis without current pathological fracture; E11.42 Type 2 diabetes mellitus with diabetic polyneuropathy; Z85.528 Personal history of other malignant neoplasm of kidney; Z90.5 Acquired absence of kidney; Z87.891 Personal history of nicotine dependence; F03.90 Unspecified dementia, unspecified severity, without behavioral disturbance, psychotic disturbance, mood disturbance, and anxiety; Z66 Do not resuscitate; E11.22 Type 2 diabetes mellitus with diabetic chronic kidney disease; I25.2 Old myocardial infarction; K44.9 Diaphragmatic hernia without obstruction or gangrene
CPT/HCPCS: 36415; 36430; 80048; 80053; 80162; 82272; 82330; 82947; 83735; 85014; 85018; 85025; 85027; 85610; 86850; 86900; 86901; 86923; 87081; 93005; 93010; 94640; 94760; 96365; 96366; 96376; 99285-25; A9270-GY; C9113; G0378; J1940; J2704; J7030; J7040; P9016; P9059

== ENCOUNTER 2019-02-05 15:06 | Inpatient (IN) | payer OTHER ==
[~2019-02-05] VITALS: Ht 157.5 cm; Wt 63.5 kg
[~2019-02-05 15:06] MED LIST changes: +ALBU2.5V5; +B Complex-Foli1 EACH PO; +DONEPEZIL HCL10 MG PO; +HYOS0.375T PO; +POTA20PAC PO
[2019-02-05 16:28] LABS: BASOPHILS ABSOLUTE AUTO 0.02 K/mm3 (0.00-0.23); BASOPHILS PERCENT AUTO 0 % (0-2); EOSINOPHILS ABSOLUTE AUTO 0.13 K/mm3 (0.00-0.68); EOSINOPHILS PERCENT AUTO 2 % (0-6); Hematocrit 31.3 % (33.0-51.0); Hemoglobin 9.1 g/dL (11.5-16.0); IMMATURE GRAN ABSOLUTE AUTO 0.02 K/mm3 (0.00-0.10); IMMATURE GRAN PERCENT AUTO 0 % (0-1); LYMPHOCYTES ABSOLUTE AUTO 0.51 K/mm3 (0.84-5.20); LYMPHOCYTES PERCENT AUTO 7 % (21-46); MONOCYTES ABSOLUTE AUTO 0.58 K/mm3 (0.16-1.47); MONOCYTES PERCENT AUTO 8 % (4-13); Mean Corpuscular HGB 26.1 pg (26.0-34.0); Mean Corpuscular HGB Conc 29.1 g/dL (31.5-36.5); Mean Corpuscular Volume 90 fL (80-100); Mean Platelet Volume 11.2 fL (9.1-12.4); NEUTROPHILS ABSOLUTE AUTO 6.46 K/mm3 (1.96-9.15); NEUTROPHILS PERCENT AUTO 84 % (41-73); Platelet Count 225 K/mm3 (150-400); RDW Coefficient Variation 21.2 % (11.7-14.2); RDW Standard Deviation 69.5 fL (35.1-46.3); Red Blood Cell Count 3.48 M/mm3 (3.80-5.20); White Blood Cell Count 7.72 K/mm3 (4.00-11.30)
[2019-02-05 16:50] LABS: Alanine Aminotransfer (ALT/SGP 15 U/L (12-78); Albumin, Blood 2.7 g/dL (3.4-5.0); Albumin/Globulin Ratio 0.6 (0.8-1.8); Alk Phos 67 U/L (50-136); Anion Gap 7 mmol/L (6-16); Aspartate Aminotrans (AST/SGOT 16 U/L (12-37); Bilirubin, Total 0.4 mg/dL (0.1-1.0); Blood Urea Nitrogen 70 mg/dL (8-24); CO2, Blood 32 mmol/L (21-32); Calcium, Blood 8.7 mg/dL (8.5-10.1); Chloride, Blood 97 mmol/L (98-108); Creatinine, Blood 1.89 mg/dL (0.40-1.00); Globulin, Blood 4.3 g/dL (2.2-4.0); Glomerular Filtration Rate 27 (60-); Glucose, Blood 100 mg/dL (70-99); Potassium, Blood 4.9 mmol/L (3.5-5.5); Sodium, Blood 136 mmol/L (136-145); Troponin I <0.015 ng/mL (0.000-0.040)
[2019-02-06 05:06] LABS: BASOPHILS ABSOLUTE AUTO 0.05 K/mm3 (0.00-0.23); BASOPHILS PERCENT AUTO 1 % (0-2); EOSINOPHILS ABSOLUTE AUTO 0.09 K/mm3 (0.00-0.68); EOSINOPHILS PERCENT AUTO 1 % (0-6); Hematocrit 30.1 % (33.0-51.0); Hemoglobin 8.7 g/dL (11.5-16.0); IMMATURE GRAN ABSOLUTE AUTO 0.03 K/mm3 (0.00-0.10); IMMATURE GRAN PERCENT AUTO 1 % (0-1); LYMPHOCYTES ABSOLUTE AUTO 0.36 K/mm3 (0.84-5.20); LYMPHOCYTES PERCENT AUTO 6 % (21-46); MONOCYTES ABSOLUTE AUTO 0.65 K/mm3 (0.16-1.47); MONOCYTES PERCENT AUTO 10 % (4-13); Mean Corpuscular HGB 25.8 pg (26.0-34.0); Mean Corpuscular HGB Conc 28.9 g/dL (31.5-36.5); Mean Corpuscular Volume 89 fL (80-100); Mean Platelet Volume 11.9 fL (9.1-12.4); NEUTROPHILS ABSOLUTE AUTO 5.13 K/mm3 (1.96-9.15); NEUTROPHILS PERCENT AUTO 81 % (41-73); Platelet Count 226 K/mm3 (150-400); RDW Coefficient Variation 21.2 % (11.7-14.2); RDW Standard Deviation 68.6 fL (35.1-46.3); Red Blood Cell Count 3.37 M/mm3 (3.80-5.20); White Blood Cell Count 6.31 K/mm3 (4.00-11.30)
[2019-02-06 05:31] LABS: Anion Gap 6 mmol/L (6-16); Blood Urea Nitrogen 58 mg/dL (8-24); Bun/Creatinine Ratio 33.9 (12.0-20.0); CO2, Blood 35 mmol/L (21-32); Calcium, Blood 8.6 mg/dL (8.5-10.1); Chloride, Blood 98 mmol/L (98-108); Creatinine, Blood 1.71 mg/dL (0.40-1.00); Glomerular Filtration Rate 30 (60-); Glucose, Blood 83 mg/dL (70-99); Potassium, Blood 4.3 mmol/L (3.5-5.5); Sodium, Blood 139 mmol/L (136-145); Vancomycin, Random 11.7 ug/mL
--- NOTE | 2019-02-06 05:53 | NUR ---
SHIFT SUMMARY PATIENT ADMITTED FROM ER. MEDICATION LIST INCOMPLETE PER PATIENT. PATIENT STATES THAT SHE GETS SCARED THAT SHE WILL FORGET TO BREATHE AND BECOME SHORT OF BREATH AND PREFERS STAFF TO CHECK ON HER FREQUENTLY. PATIENT USES CALL LIGHT FREQUENTLY TO ASK STAFF IF SHE IS SUPPOSED TO "BREATHE IN THROUGH HER NOSE AND OUT THROUGH HER MOUTH." PATIENT AAOX4. 1 PERSON ASSIST TO BSC, DYSPNEA ON EXERTION AND ANXIETY ABOUT BREATHING. PATIENT WEARS 2L NC O2 AT BASELINE AND CURRENTLY ON 3L NC.PICTURES OF BLE REDNESS AND SWELLING PLACED IN CHART. SCDs ON BLE. WILL CONTINUE TO MONITOR.
--- NOTE | 2019-02-06 09:25 | NUR ---
PT WITHOUT DNR BAND IN PLACE. ORDER VERIFIED WITH SERVANDO TABARES RN AND THANH DNR BAND PLACED TO LEFT WRIST.
[2019-02-06] MEDS ORDERED: AMOCLA875 PO (16:35)
[2019-02-06] MEDS ORDERED: FERSU300 PO (16:36)
[2019-02-06] MEDS ORDERED: BENZ100A PO (16:36)
[2019-02-06] MEDS ORDERED: ANORO ELLIPTA1 EACH INH (16:38)
[2019-02-06] MEDS ORDERED: HYDR1TAB94 PO (16:38)
[2019-02-06] MEDS ORDERED: OSCIMIN SL0.125 MG SL (16:40)
[2019-02-06] MEDS ORDERED: ALBU3IS INH (16:42)
[2019-02-06] MEDS ORDERED: DONEPEZIL HCL10 MG PO (16:44)
[2019-02-06] MEDS ORDERED: Proctosol HC30 GM TOP (16:46)
[2019-02-06] MEDS ORDERED: CALC.25 PO (16:52)
--- NOTE | 2019-02-06 19:01 | NUR ---
IVF AND ABX STOPPED TODAY, PREDNISONE FOR COPD STARTED, MIRALAX ORDERED TO HELP WITH PT CONSTIPATION AND PO NORCO ORDERED FOR PAIN. SEE EMAR. NO ACUTE CHANGES NOTED THIS SHIFT, WILL CONTINUE TO MONITOR AND REPORT TO MONSE FLORES
--- NOTE | 2019-02-07 05:03 | NUR ---
SHIFT SUMMARY PATIENT AAOX4. CALLS APPROPRIATELY. CONTINENT. PATIENT COMPLAINING OF CONSTIPATION. HAD MULTIPLE SMALL BM. DYSPNEA ON EXERTION. PATIENT SLEPT FOR LESS THAN 1 HOUR OVERNIGHT. VSS. WILL CONTINUE TO MONITOR.
[2019-02-07 05:09] LABS: BASOPHILS ABSOLUTE AUTO 0.02 K/mm3 (0.00-0.23); BASOPHILS PERCENT AUTO 0 % (0-2); EOSINOPHILS ABSOLUTE AUTO 0.01 K/mm3 (0.00-0.68); EOSINOPHILS PERCENT AUTO 0 % (0-6); Hematocrit 32.6 % (33.0-51.0); Hemoglobin 9.3 g/dL (11.5-16.0); IMMATURE GRAN ABSOLUTE AUTO 0.02 K/mm3 (0.00-0.10); IMMATURE GRAN PERCENT AUTO 0 % (0-1); LYMPHOCYTES ABSOLUTE AUTO 0.33 K/mm3 (0.84-5.20); LYMPHOCYTES PERCENT AUTO 6 % (21-46); MONOCYTES ABSOLUTE AUTO 0.42 K/mm3 (0.16-1.47); MONOCYTES PERCENT AUTO 8 % (4-13); Mean Corpuscular HGB 25.3 pg (26.0-34.0); Mean Corpuscular HGB Conc 28.5 g/dL (31.5-36.5); Mean Corpuscular Volume 89 fL (80-100); Mean Platelet Volume 11.5 fL (9.1-12.4); NEUTROPHILS ABSOLUTE AUTO 4.83 K/mm3 (1.96-9.15); NEUTROPHILS PERCENT AUTO 86 % (41-73); Platelet Count 258 K/mm3 (150-400); RDW Coefficient Variation 21.5 % (11.7-14.2); RDW Standard Deviation 69.6 fL (35.1-46.3); Red Blood Cell Count 3.67 M/mm3 (3.80-5.20); White Blood Cell Count 5.63 K/mm3 (4.00-11.30)
[2019-02-07 05:33] LABS: Bun/Creatinine Ratio 34.9 (12.0-20.0); Calcium, Blood 8.9 mg/dL (8.5-10.1); Creatinine, Blood 1.49 mg/dL (0.40-1.00); Potassium, Blood 4.1 mmol/L (3.5-5.5)
--- NOTE | 2019-02-07 16:54 | NUR ---
ALERT. ORIENTED. MOIST SOUNDING COUGH. ON OXYGEN. EXERTIONAL SOB. COUGHS UP THICK SPUTUM. C/O CONSTIPATION-HAD 3 SM B.M'S YESTERDAY. OFFERED WARM PRUNE JUICE W/MELTED BUTTER AND APPLE JUICE. AFRAID OF DIARRHEA IF DRINKS IT. ABLE TO MAKE NEEDS KNOWN. TM
--- NOTE | 2019-02-08 05:49 | NUR ---
SHIFT SUMMARY PATIENT VERY CONFUSED OVER NIGHT. PATIENT CALLING OUT FOR "DON" REPEATEDLY OVER NIGHT. PATIENT ON MULTIPLE OCCASIONS ASKED THIS NURSE TO "GO INTO THE OTHER ROOM HERE AND GET DON'S NUMBER OFF THE SHEET ON THE TABLE BY THE PHONE." EXPLAINED TO THE PATIENT MULTIPLE TIMES THAT SHE WS IN THE HOSPITAL TO WHICH THE PATIENT STATED "I KNOW ITS THE HOSPITAL, I'M NOT STUPID." PATIENT INCREASINGLY AGITATED WITH STAFF. AT APPROXIMATELY 0430 PATIENT DEMANDED TO HAVE THE WHITE PHONE IN HER ROOM AND SHE SUCCESSFULLY CALLED 911 ON 2 SEPERATE OCCASIONS. EXPLAINED TO THE PATIENT THAT IT ISNT APPROPRIATE TO CALL 911 FROM HER ROOM IN THE HOSPITAL AND SHE STATED "ITS ALWAYS APPROPRIATE WHEN YOU NEED HELP AND NO ONE WILL TALK TO YOU" I EXPLAINED TO HE PATIENT THAT SHE IS IN THE HOSPITAL AND SHE COULD HIT HER CALL LIGHT AND THE NURSING STAFF WOULD HELP HER. PATIENT THEN STATED THAT I WAS A "DAMN LIAR" AND STATED SHE DIDNT BELIEVE A WORD I SAID. I TRIED TO REORIENT THE PATIENT BUT THE PATIENT CONTINUED TO CALL ME A "DAMN LIAR" AND STATED SHE KNEW SHE WAS IN THE HOSPITAL BECAUSE SHE HAD THE FLU. I EXPLAINED TO THE PATIENT THAT SHE HAD NOT BEEN DIAGNOSED WITH THE FLU . ATTEMPTED TO CALL PATIENT SON BUT WHEN THE PATIENT WAS HANDED THE PHONE SHE HUNGUP AND CALLED 911 AGAIN. PATIENTS WHITE PHONE WAS THEN UNPLUGGED FROM THE WALL TO PREVENT HER FROM CALLING 911. PATIENT THEN FOUND WALKING AROUND ROOM WITH TAB ALARM NOT ACTIVATING. PATIENT SWATTED AT ME IN AN AGGRESSIVE WAY WHEN I ATTEMPTED TO STEADY HER ON HER FEET. I EXPLAINED TO THE PATIENT THAT BEHAVIOR WAS INAPPROPRIATE AND WOULD NOT BE TOLERATED AND THAT I WAS ONLY TRYING TO HELP HER TO THE BATHROOM AND PREVENT HER FROM FALLING. PATIENT VERY ANGRY AND UPSET WITH STAFF BUT WAS REDIRECTED TO BED WITH ALARM IN PLACE. MEDS CRUSHED IN APPLESAUCE. 2L NC AT BASELINE. WCTM
--- NOTE | 2019-02-08 07:38 | NUR ---
PATIENT WAS OFFERED A SHOWER AND REFUSED. I OFFERED TO HELP HER AND LET HER KNOW THAT IT MIGHT MAKE HER FEEL BETTER, SHE DECLINED AND STATED SHE TOOK ONE YETSERDAY AFTERNOON AND DID NOT WANT ONE TODAY. WILL OFFER AGAIN LATER TODAY. RN WAS NOTIFIED OF REFUSAL.
[2019-02-08] MEDS ORDERED: ACETADOTE200 MG/1 M INH (10:18)
[2019-02-08] MEDS ORDERED: DOCU100 PO (10:19)
[2019-02-08] MEDS ORDERED: FAMO20 PO (10:19)
[2019-02-08] MEDS ORDERED: MIRALAX17 GM PO (10:20)
[2019-02-08] MEDS ORDERED: PRED20 PO (10:20)
--- NOTE | 2019-02-08 11:13 | NUR ---
pt discharged THE PT AND HER SON VERBALIZED UNDERSTANDING OF THE DC INSTRUCTIONS, PRESCRIPTIONS FAXED TO [facility] REQUESTED, THE PT APPEARED TO BE BREATHING EASILY ON O2 AT TIME OF DC, THE PT WAS TRANSFERED VIA WHEELCHAIR ACCOMPANIED BY THE ASSISTANT TRACK AND FIELD COACH AND HER SON, BELONGINGS RELEASED TO SON
== END 2019-02-08 10:55 | disposition home or self-care (01) | DRG 193 ==
LOC: ER 15:06 → MEDS 19:10 → ENPENDDIS 02-08 09:49 → MEDS 02-08 10:55
PROVIDERS: Emergency Medicine; ADMIT Internal Medicine
DX: J12.9 Viral pneumonia, unspecified (principal); J96.21 Acute and chronic respiratory failure with hypoxia; J44.0 Chronic obstructive pulmonary disease with (acute) lower respiratory infection; J44.1 Chronic obstructive pulmonary disease with (acute) exacerbation; I80.291 Phlebitis and thrombophlebitis of other deep vessels of right lower extremity; I13.0 Hypertensive heart and chronic kidney disease with heart failure and stage 1 through stage 4 chronic kidney disease, or unspecified chronic kidney disease; N18.4 Chronic kidney disease, stage 4 (severe); I50.42 Chronic combined systolic (congestive) and diastolic (congestive) heart failure; I48.20 Chronic atrial fibrillation, unspecified; N17.9 Acute kidney failure, unspecified; L03.115 Cellulitis of right lower limb; Z99.81 Dependence on supplemental oxygen; G62.9 Polyneuropathy, unspecified; I25.2 Old myocardial infarction; Z85.528 Personal history of other malignant neoplasm of kidney; Z66 Do not resuscitate; Z90.5 Acquired absence of kidney; I87.2 Venous insufficiency (chronic) (peripheral); Z86.14 Personal history of Methicillin resistant Staphylococcus aureus infection; D63.1 Anemia in chronic kidney disease; E61.1 Iron deficiency; E11.22 Type 2 diabetes mellitus with diabetic chronic kidney disease; F03.90 Unspecified dementia, unspecified severity, without behavioral disturbance, psychotic disturbance, mood disturbance, and anxiety; I25.10 Atherosclerotic heart disease of native coronary artery without angina pectoris; Z87.891 Personal history of nicotine dependence
CPT/HCPCS: 36415; 71045; 71046; 80048; 80053; 80202; 83605; 83880; 84145; 84484; 85025; 93005; 93010; 94640; 94664; 94667; 94760; 96365; 96366; 96367; 98960; 99285-25; A9270; A9270-GY; J1956; J2185; J3370; J7050; J7120; J7512

== ENCOUNTER 2019-02-15 08:49 | Emergency (ER) | payer OTHER ==
[~2019-02-15] VITALS: Ht 157.5 cm; Wt 63.5 kg
[~2019-02-15 08:49] MED LIST changes: +AMOCLA875 PO; +BENZ100A PO; +FAMO20 PO; +FERSU300 PO; +MIRALAX17 GM PO; +OSCIMIN SL0.125 MG SL; +Proctosol HC30 GM TOP
[2019-02-15 10:09] LABS: Source, Urine Catheter
[2019-02-15 10:13] LABS: Bilirubin, Urine Neg (Neg); Blood, Urine Neg (Neg); Glucose Qualitative, Urine Neg (Neg); Ketones, Urine Neg (Neg); Leukocyte Esterase, Urine Neg (Neg); Nitrite, Urine Neg (Neg); Protein, Urine Neg (Neg); Urobilinogen, Urine NORM (Normal)
[2019-02-15 10:27] LABS: Appearance, Urine Clear (Clear); Color, Urine Yellow (P-Yellow)
[2019-02-15 10:48] LABS: BASOPHILS ABSOLUTE AUTO 0.04 K/mm3 (0.00-0.23); BASOPHILS PERCENT AUTO 1 % (0-2); EOSINOPHILS ABSOLUTE AUTO 0.11 K/mm3 (0.00-0.68); EOSINOPHILS PERCENT AUTO 2 % (0-6); Hematocrit 33.5 % (33.0-51.0); Hemoglobin 9.6 g/dL (11.5-16.0); IMMATURE GRAN ABSOLUTE AUTO 0.02 K/mm3 (0.00-0.10); IMMATURE GRAN PERCENT AUTO 0 % (0-1); LYMPHOCYTES ABSOLUTE AUTO 0.46 K/mm3 (0.84-5.20); LYMPHOCYTES PERCENT AUTO 8 % (21-46); MONOCYTES ABSOLUTE AUTO 0.64 K/mm3 (0.16-1.47); MONOCYTES PERCENT AUTO 11 % (4-13); Mean Corpuscular HGB 25.9 pg (26.0-34.0); Mean Corpuscular HGB Conc 28.7 g/dL (31.5-36.5); Mean Corpuscular Volume 90 fL (80-100); NEUTROPHILS ABSOLUTE AUTO 4.65 K/mm3 (1.96-9.15); NEUTROPHILS PERCENT AUTO 79 % (41-73); Platelet Count 211 K/mm3 (150-400); RDW Coefficient Variation 21.2 % (11.7-14.2); Red Blood Cell Count 3.71 M/mm3 (3.80-5.20); White Blood Cell Count 5.92 K/mm3 (4.00-11.30)
[2019-02-15 11:03] LABS: Bun/Creatinine Ratio 38.2 (12.0-20.0); Calcium, Blood 8.8 mg/dL (8.5-10.1); Creatinine, Blood 1.78 mg/dL (0.40-1.00); Potassium, Blood 4.6 mmol/L (3.5-5.5)
== END 2019-02-15 12:55 | disposition home or self-care (01) ==
LOC: ER 08:49
PROVIDERS: Emergency Medicine
DX: K64.4 Residual hemorrhoidal skin tags (principal); K59.00 Constipation, unspecified; I13.0 Hypertensive heart and chronic kidney disease with heart failure and stage 1 through stage 4 chronic kidney disease, or unspecified chronic kidney disease; N18.9 Chronic kidney disease, unspecified; I50.9 Heart failure, unspecified; I48.91 Unspecified atrial fibrillation; J44.9 Chronic obstructive pulmonary disease, unspecified; Z88.0 Allergy status to penicillin; Z88.6 Allergy status to analgesic agent; Z88.5 Allergy status to narcotic agent; Z91.041 Radiographic dye allergy status; Z88.2 Allergy status to sulfonamides; Z79.899 Other long term (current) drug therapy; Z79.51 Long term (current) use of inhaled steroids; Z87.891 Personal history of nicotine dependence
CPT/HCPCS: 36415; 74022; 80048; 81003; 83880; 85025; 94640; 99284-25; J7030; P9612

== ENCOUNTER 2019-03-02 09:45 | Inpatient (IN) | payer OTHER ==
[~2019-03-02] VITALS: Ht 157.5 cm; Wt 65.4 kg
[2019-03-02 10:23] LABS: BASOPHILS ABSOLUTE AUTO 0.04 K/mm3 (0.00-0.23); BASOPHILS PERCENT AUTO 1 % (0-2); EOSINOPHILS ABSOLUTE AUTO 0.12 K/mm3 (0.00-0.68); EOSINOPHILS PERCENT AUTO 2 % (0-6); Hemoglobin 8.4 g/dL (11.5-16.0); IMMATURE GRAN ABSOLUTE AUTO 0.02 K/mm3 (0.00-0.10); IMMATURE GRAN PERCENT AUTO 0 % (0-1); LYMPHOCYTES ABSOLUTE AUTO 0.47 K/mm3 (0.84-5.20); LYMPHOCYTES PERCENT AUTO 8 % (21-46); MONOCYTES ABSOLUTE AUTO 0.61 K/mm3 (0.16-1.47); MONOCYTES PERCENT AUTO 11 % (4-13); Mean Corpuscular HGB 25.2 pg (26.0-34.0); Mean Corpuscular Volume 87 fL (80-100); Mean Platelet Volume 12.5 fL (9.1-12.4); NEUTROPHILS PERCENT AUTO 78 % (41-73); Platelet Count 154 K/mm3 (150-400); RDW Coefficient Variation 19.9 % (11.7-14.2); RDW Standard Deviation 63.1 fL (35.1-46.3); Red Blood Cell Count 3.33 M/mm3 (3.80-5.20); White Blood Cell Count 5.76 K/mm3 (4.00-11.30)
[2019-03-02 10:32] LABS: Alanine Aminotransfer (ALT/SGP 23 U/L (12-78); Albumin, Blood 2.7 g/dL (3.4-5.0); Albumin/Globulin Ratio 0.8 (0.8-1.8); Alk Phos 81 U/L (50-136); Anion Gap 2 mmol/L (6-16); Aspartate Aminotrans (AST/SGOT 34 U/L (12-37); Bilirubin, Total 0.4 mg/dL (0.1-1.0); Blood Urea Nitrogen 84 mg/dL (8-24); Bun/Creatinine Ratio 52.8 (12.0-20.0); CO2, Blood 36 mmol/L (21-32); Calcium, Blood 8.4 mg/dL (8.5-10.1); Chloride, Blood 98 mmol/L (98-108); Creatinine, Blood 1.59 mg/dL (0.40-1.00); Globulin, Blood 3.5 g/dL (2.2-4.0); Glomerular Filtration Rate 33 (60-); Glucose, Blood 108 mg/dL (70-99); Potassium, Blood 5.4 mmol/L (3.5-5.5); Sodium, Blood 136 mmol/L (136-145); Total Protein, Blood 6.2 g/dL (6.4-8.2); Troponin I <0.015 ng/mL (0.000-0.040)
[2019-03-02 11:50] LABS: Source, Urine Catheter
[2019-03-02 12:04] LABS: Appearance, Urine Clear (Clear); Bilirubin, Urine Neg (Neg); Blood, Urine Neg (Neg); Color, Urine Yellow (P-Yellow); Glucose Qualitative, Urine Neg (Neg); Ketones, Urine Neg (Neg); Leukocyte Esterase, Urine 1+ (Neg); Nitrite, Urine Neg (Neg); Protein, Urine Neg (Neg); Urobilinogen, Urine NORM (Normal)
[2019-03-02 12:16] LABS: Bacteria Few /hpf; Red Blood Cells, Urine 0-2 /hpf (0-2); Squamous Epithelial Cells Many /hpf (Few)
[2019-03-02] MEDS ORDERED: ACETADOTE200 MG/1 M NEB (14:21)
[2019-03-02] MEDS ORDERED: TORSE20 PO (14:24)
[2019-03-02] MEDS ORDERED: CARV6.25 PO (14:25)
[2019-03-02] MEDS ORDERED: DONEPEZIL HCL10 M1 PO (14:26)
[2019-03-02] MEDS ORDERED: ENTRESTO 24 MG1 EACH PO (14:27)
[2019-03-02] MEDS ORDERED: ALBU3IS NEB (14:27)
[2019-03-02] MEDS ORDERED: ALBU90OI INH (14:28)
[2019-03-02] MEDS ORDERED: Calcitriol0.5 MCG PO (14:29)
[2019-03-02] MEDS ORDERED: ANORO ELLIPTA1 EACH INH (14:30)
[2019-03-02] MEDS ORDERED: Isosorbide Mono30 MG PO (14:30)
[2019-03-02] MEDS ORDERED: SPIR25 PO (14:30)
[2019-03-02] MEDS ORDERED: FERROUS SULFAT325 MG PO (14:31)
[2019-03-02] MEDS ORDERED: TIOT18 INH (14:32)
[2019-03-02] MEDS ORDERED: FURO80 PO ×2 (14:55)
[2019-03-02] MEDS ORDERED: VITAMIN D-32000 UNIT PO (15:01)
[2019-03-02] MEDS ORDERED: HYDR1TAB94 PO (15:02)
[2019-03-02] MEDS ORDERED: B Complex-Foli1 EACH PO (15:03)
[2019-03-02] MEDS ORDERED: ALLEGRA ALLERG180 MG PO (15:04)
[2019-03-02] MEDS ORDERED: Vitamin B-650 MG PO (15:04)
[2019-03-02] MEDS ORDERED: HYOS0.375T PO (15:09)
--- NOTE | 2019-03-02 15:40 | NUR ---
ASSUMED CARE: PT NEW ADMIT FROM ED. AFIB ON TELE IN 70S. 4L NC IN PLACE SATTING MID 90S. BED ALARM IN PLACE, FAMILY AT BEDSIDE. PT REQUESTS TO BE SAT UP WITH [address] CLAM TREADER REVIEWED BLOOD CONSENT AND VERBAL RELEASE CONSENT.
--- NOTE | 2019-03-02 16:18 | NUR ---
LIGHT INDUSTRIAL SUPERVISOR AT BEDSIDE AT THIS TIME.
--- NOTE | 2019-03-02 16:50 | NUR ---
ECHOCARDIOGRAM COMPLETE
--- NOTE | 2019-03-02 18:21 | NUR ---
SHIFT SUMMARY: NEW ADMIT FROM ED. DR WELSH WENT INTO ROOM AND CONSULTED. STATES HE FEELS PT'S FLUID OVERLOAD IS MORE KIDNEY THAN HEART RELATED. ASKED IF HE NEEDED DR DUARTE'S NUMBER. STATED HE WOULD DISCUSS WITH HIM TOMORROW. PT SITTING AT BEDSIDE EATING DINNER. ULTRASOUND AND ECHO DONE THIS AFTERNOON.
[2019-03-03 04:10] LABS: BASOPHILS ABSOLUTE AUTO 0.03 K/mm3 (0.00-0.23); BASOPHILS PERCENT AUTO 1 % (0-2); EOSINOPHILS ABSOLUTE AUTO 0.09 K/mm3 (0.00-0.68); EOSINOPHILS PERCENT AUTO 2 % (0-6); Hematocrit 32.2 % (33.0-51.0); Hemoglobin 9.3 g/dL (11.5-16.0); IMMATURE GRAN ABSOLUTE AUTO 0.03 K/mm3 (0.00-0.10); IMMATURE GRAN PERCENT AUTO 1 % (0-1); LYMPHOCYTES ABSOLUTE AUTO 0.45 K/mm3 (0.84-5.20); LYMPHOCYTES PERCENT AUTO 10 % (21-46); MONOCYTES ABSOLUTE AUTO 0.49 K/mm3 (0.16-1.47); MONOCYTES PERCENT AUTO 10 % (4-13); Mean Corpuscular HGB 24.9 pg (26.0-34.0); Mean Corpuscular HGB Conc 28.9 g/dL (31.5-36.5); Mean Corpuscular Volume 86 fL (80-100); NEUTROPHILS ABSOLUTE AUTO 3.62 K/mm3 (1.96-9.15); NEUTROPHILS PERCENT AUTO 77 % (41-73); Platelet Count 181 K/mm3 (150-400); RDW Coefficient Variation 19.7 % (11.7-14.2); RDW Standard Deviation 61.1 fL (35.1-46.3); Red Blood Cell Count 3.74 M/mm3 (3.80-5.20); White Blood Cell Count 4.71 K/mm3 (4.00-11.30)
[2019-03-03 04:27] LABS: Calcium, Blood 8.4 mg/dL (8.5-10.1); Creatinine, Blood 1.37 mg/dL (0.40-1.00); Potassium, Blood 4.8 mmol/L (3.5-5.5)
--- NOTE | 2019-03-03 06:11 | NUR ---
SHIFT SUMMARY. NC NEEDS 3-4 L AND EXERTIONAL DYSPNEA W/ DESAT MOMENTARILY. CONSTANT STAFF ENC TO COUGH THICK MUCUS FROM UPPER SOUNDING CONGESTION. GOOD EFFORT. PURSED LIP BREATHING TRAINING. AND GOOD EFFORT. REFUSED HS SNACK AND FLUIDS ENC. PAIN MED WHEN ASSUMED CARE AT 1900. AND NO FURTHER NEED ALL NOC . IN POSITIONING, A FEW PAINFUL SPOTS ON FEET AND LEGS, BUT BASE LINE TOLERANCE. NO OPEN AREAS OR WEEPING OF LEG ULCER CONDITION. SEE PHOTOS. NO DSG NEEDED. DID NOT PLACE RISHI OR SCDS . AF 90-116 DEPENDING ON EXERTION AND BSC USE.
--- NOTE | 2019-03-03 10:50 | NUR ---
0730-ASSUMED CARE OF PT. PT IS ASLEEP. PT WAS AWAKENED FOR HER BREATHING TREATMENT PT REFUSED PER RT. PT HAS BEEN PUSHING STAFF AWAY AND NOT WANTING CARE. 0900-AWAKENED PT AGAIN FOR HER MEDICATIONS. PT REFUSED HER MEDICATIONS. SHE STATED "LEAVE ME ALONE, LET ME GO TO SLEEP." 0945-NOTED PT SAT AT THE SIDE OF THE BED, DIDN'T USE THE CALL LIGHT. REMINDED PT TO USE THE CALL. PT IS ALERT AND ORIENTED. PT STATED SHE WANTS TO USE THE BATHROOM. PT WAS HELPED TO THE BEDSIDE COMMODE. PT WAS ABLE TO VOID AND DEFECATE. PT HAS DIARRHEA. PT WAS STEADY ON HER FEET. ASKED PT IF SHE WANTS TO TAKE HER MEDICATIONS SINCE SHE REFUSED HER MEDS EARLIER. SHE STATED "YES". 1000-PT WAS HELPED BACK TO BED AND STATED SHE DOESN'T FEEL GOOD. O2 SATURATION NOTED TO GO DOWN TO LOW 80s. INCREASED O2 TO 6 LPM. WHEN ASKED AGAIN IF SHE WANTS TO TAKE HER MEDICATIONS, PT REFUSED. 1050-RETURNED PT SON TRISTEN'S CALL TO UPDATE HIM OF PT'S STATUS. CURRENTLY PT IS SLEEPING. GRANDSON AT BEDSIDE.
--- NOTE | 2019-03-03 17:50 | NUR ---
SHIFT SUMMARY: PT IS EATING DINNER AT THIS TIME. PT'S FAMILY AT BEDSIDE, UPDATED THEM OF PT'S STATUS. PT STILL HAS CRACKLES UPON AUSCULTATION. AFEBRILE. STILL WITH WET SOUNDING COUGH.
--- NOTE | 2019-03-04 04:21 | NUR ---
ASSUMED CARE OF PATIENT AT 1900 HOURS WITH REPORT FROM JESSICA RN, PATIENT ASLEEP IN BED, 02 SATURATION AT 92% ON 4L NC PER CONTINUOUS MONITOR. AT ASSESSMENT PATIENT WAS POLITE AND COOPERATIVE, BUT SATURATION DROPS REGULARLY AND RANDOMLY PATIENT OFTEN BREATHES THROUGH HER MOUTH. PATIENT TOLERATES NC IN MOUTH FOR THE MOMENT. LUNG SOUNDS COARSE, DIM IN BASES, WITH WHEEZE AND LIGHT CRACKLES IN UPPER LOBES. PT DENIES ACUTE PAIN. WILL CONTINUE TO MONITOR
[2019-03-04 04:34] LABS: BASOPHILS ABSOLUTE AUTO 0.03 K/mm3 (0.00-0.23); BASOPHILS PERCENT AUTO 0 % (0-2); EOSINOPHILS ABSOLUTE AUTO 0.06 K/mm3 (0.00-0.68); EOSINOPHILS PERCENT AUTO 1 % (0-6); Hematocrit 35.7 % (33.0-51.0); IMMATURE GRAN ABSOLUTE AUTO 0.03 K/mm3 (0.00-0.10); IMMATURE GRAN PERCENT AUTO 0 % (0-1); LYMPHOCYTES ABSOLUTE AUTO 0.44 K/mm3 (0.84-5.20); LYMPHOCYTES PERCENT AUTO 7 % (21-46); MONOCYTES ABSOLUTE AUTO 0.66 K/mm3 (0.16-1.47); MONOCYTES PERCENT AUTO 10 % (4-13); Mean Corpuscular HGB 24.8 pg (26.0-34.0); Mean Corpuscular Volume 88 fL (80-100); Mean Platelet Volume 12.7 fL (9.1-12.4); NEUTROPHILS ABSOLUTE AUTO 5.58 K/mm3 (1.96-9.15); NEUTROPHILS PERCENT AUTO 82 % (41-73); Platelet Count 231 K/mm3 (150-400); RDW Coefficient Variation 19.5 % (11.7-14.2); RDW Standard Deviation 62.9 fL (35.1-46.3); Red Blood Cell Count 4.04 M/mm3 (3.80-5.20)
[2019-03-04 04:52] LABS: Bun/Creatinine Ratio 53.1 (12.0-20.0); Calcium, Blood 8.9 mg/dL (8.5-10.1); Creatinine, Blood 1.43 mg/dL (0.40-1.00); Potassium, Blood 4.8 mmol/L (3.5-5.5)
--- NOTE | 2019-03-04 07:44 | NUR ---
SHIFT SUMMARY PATIENT WAS COMPLIANT WITH ALL INTERVENTIONS THIS SHIFT, AND WAS MEDICATED AND TREATED PER MD ORDER AND UNIT PROTOCOL. PATIENT HAD TROUBLE MAINTAINING O2 SATS ABOVE ACCEPTABLE LIMITS, SOMETIMES BECAUSE OF INCREASED DEMAND WITH EXERTION, BUT MAINLY BECAUSE OF MOUTH BREATHING WHEN NC IS IN HER NOSE. PATIENT WAS OFTEN REMINDED TO BREATHE THROUGH HER NOSE, AND ALSO TOLERATED HAVING THE CANNULA IN HER MOUTH TO MORE RAPIDLY CORRECT LOW OXYGEN LEVELS. PATIENT EXHIBITED SIGNS OF DISCOMFORT AND HER ATTENTION ALTERNATED BETWEEN INTERIOR AND EXTERIOR, BUT SHE REMAINED ORIENTED AND RESPONSIVE. PATIENT WAS ASSISTED TO BEDSIDE COMMODE A NUMBER OF TIMES, AND REPOSITIONED IN BED BY TWO [facility] STAFF. PATIENT ALTERNATED BETWEEN REPORTS OF NOT FEELING "RIGHT" AND "I'M GOOD NOW." CARE AND REPORT WERE PASSED TO ONCOMING SHIFT AT 0700, PATIENT SITTING SIDE OF BED RECEIVING BREATHING TX PER RESP THERAPY. CALL LIGHT IN REACH.
--- NOTE | 2019-03-04 10:22 | NUR ---
Pt visit this AM. Pt appears significantly dyspneic as evidenced by increased respiratory rate and work of breathing. Pt wearing oxygen via NC but is breathing through her mouth. Instructed on breathing through her nose. Pt complies with instructions for about 15 to 20 seconds then starts breathing through her mouth again. Place NC in mouth and O2 saturations climb into the low 90's but breathing is still labored. Called and spoke with Pt's son Luis. Engaged in therapeutic conversation regarding goals of care. Discussed further regarding conversation hospitalist had. Luis reports leaning towards comfort care and hospice but would like to discuss further with his brother Nadir. Answered questions regarding symptom management that hospice will provide. Luis expresses appreciation of conversation. Palliative Care will remain available.
--- NOTE | 2019-03-04 11:15 | NUR ---
DYSPNEA/HYPOXIA PT NOTED TO BE VERY SOB W/ RETRACTIONS AFTER BED BATH AND BSC USE. ABD RETRACTIONS AND RR INCREASE. O2 SATS DROP TO LOW 80S AND EVEN DIP TO 78 FOR SHORT TIME. NC MOVED TO MOUTH AND INCREASED UNTIL PT WAS ABLE TO RECOVER AFTER APPROX 5 MINS.
--- NOTE | 2019-03-04 16:56 | NUR ---
Supportive therapeutic visit this afternoon. Pt sitting on edge of bed upon arrival. Pt's dyspnea slightly improved from this AM but still appears mildly dyspneic. Pt's son Nadir at bedside. Answered questions and validated concerns. Nadir reports family will continue conversation regarding hospice and goals of care when Pt returns home. Instructed Nadir to call with any questions or concerns and left Palliative Care contact information. Spoke with bedside SANDRA Tiwari and discussed case. Palliative Care will remain available.
--- NOTE | 2019-03-04 17:33 | NUR ---
SHIFT SUMMARY PT CONTINUES TO DECONDITION WITH ACTIVITY, ALTHOUGH MILD COMPARED TO THIS AFTERNOON WITH BEDBATH. FAMILY INTO VISIT WITH PT x 2, A DIFFERENT SON EACH TIME. PT CHANGED TO PO LASIX THIS EVENING. FORGETFUL AT TIMES BUT REORIENTS EASILY. TAKING IN PO WELL.
[2019-03-05 04:12] LABS: Calcium, Blood 9.1 mg/dL (8.5-10.1); Creatinine, Blood 1.31 mg/dL (0.40-1.00); Potassium, Blood 4.9 mmol/L (3.5-5.5)
--- NOTE | 2019-03-05 07:30 | NUR ---
ASSUMED CARE: PT CONFUSED THIS AM. AGITATED, PULLING OFF O2 AND CONTINUOUS BIOX. VARIOUS STAFF AT BEDSIDE WHEN PT STAND UP AND SETS OFF CHAIR ALARM. REQUIRES FREQUENT REORIENTATION.
--- NOTE | 2019-03-05 07:43 | NUR ---
SHIFT SUMMARY LUNG SOUNDS REMAINED CLEAR YET VERY DIM, PATIENT LYING IN BED SLEEPING FOR ONLY ABOUT 2 HORUS THIS SHIFT, OTHERWISE SITTING SIDE OF BED, ALERT, BUT EXHIBITING SIGNS OF DEMENTIA AND UNABLE TO DIFFERENTIATE BETWEEN HER HOSPITAL ROOM AND HER HOME. OXYGEN SATURATION WAS MAINTAINED AT OR ABOVE 90% TO THE BEST OF THE UNIT'S ABILITY, MULTIPLE STAFF RESPONDING TO ALARMS SIGNIFYING DISPLACEMENT OF HER NASAL CANULA, OR OF THE SENSOR, OR DELIBERATE REMOVAL BY THE PATIENT HERSELF. PATIENT DENIED PAIN THIS SHIFT, REFUSED ALL MEDICATIONS, REFUSED COMPRESSION STOCKINGS, AND DID NOT C/O DISTRESS OR NAUSEA ALL SHIFT. CARE AND REPORT PASSED TO ONCOMING SHIFT AT 0700, PATIENT AWAKE SITTING ON EDGE OF RECLINER, ALERT AND IRRITABLE. RECLINER
--- NOTE | 2019-03-05 07:52 | NUR ---
PT CONTINUES TO BE AGITATED. TABULATING MACHINE MECHANIC ON PHONE WITH PT'S SON TO RELAY SITUATION TO HIM.
--- NOTE | 2019-03-05 11:33 | NUR ---
DISCHARGE: DR DUARTE CAME IN AND SPOKE WITH PT'S SON ABOUT DC PLAN. SON STATES AT THIS TIME THEY WISH TO DISCHARGE HOME WITH HOME HEALTH. THEY FEEL HOME ENVIRONMENT WILL HELP WITH CONFUSION AND AGITATION. SON STATES THAT IF HE SEES DECLINE HE WILL CALL HER PCP TO CHANGE HER TO HOSPICE. DC PLANNING AWARE OF RESUMPTION OF HOME HEALTH. ESCORTED OUT VIA WHEEL CHAIR BY HOSPITAL STAFF. IV DC'D WNL.
== END 2019-03-05 11:05 | disposition home or self-care (01) | DRG 291 ==
LOC: ER 09:45 → PCU 14:29
PROVIDERS: Emergency Medicine; ADMIT Hospitalist
DX: I13.0 Hypertensive heart and chronic kidney disease with heart failure and stage 1 through stage 4 chronic kidney disease, or unspecified chronic kidney disease (principal); J96.21 Acute and chronic respiratory failure with hypoxia; I50.43 Acute on chronic combined systolic (congestive) and diastolic (congestive) heart failure; I48.20 Chronic atrial fibrillation, unspecified; N18.4 Chronic kidney disease, stage 4 (severe); N17.9 Acute kidney failure, unspecified; E11.22 Type 2 diabetes mellitus with diabetic chronic kidney disease; J44.9 Chronic obstructive pulmonary disease, unspecified; D63.1 Anemia in chronic kidney disease; D50.9 Iron deficiency anemia, unspecified; I27.20 Pulmonary hypertension, unspecified; I87.2 Venous insufficiency (chronic) (peripheral); I25.10 Atherosclerotic heart disease of native coronary artery without angina pectoris; E11.42 Type 2 diabetes mellitus with diabetic polyneuropathy; E11.51 Type 2 diabetes mellitus with diabetic peripheral angiopathy without gangrene; Z66 Do not resuscitate; I25.2 Old myocardial infarction; Z99.81 Dependence on supplemental oxygen; Z88.6 Allergy status to analgesic agent; Z88.0 Allergy status to penicillin; Z88.5 Allergy status to narcotic agent; Z88.2 Allergy status to sulfonamides; Z88.8 Allergy status to other drugs, medicaments and biological substances; Z79.52 Long term (current) use of systemic steroids; Z79.899 Other long term (current) drug therapy; Z87.891 Personal history of nicotine dependence
CPT/HCPCS: 36415; 71045; 76770; 80048; 80053; 81001; 82947; 83880; 84484; 85025; 87086; 93005; 93010; 93306; 94640; 94760; 96374; 99285-25; A9270-GY; J1940